=== PATIENT | female | born 1995 | race African-American/Black ===

== ENCOUNTER 2021-09-21 06:38 | Emergency (ER) | payer OTHER, SELFPAY ==
[2021-09-21 07:02] VITALS: BP 104/80; PULSE 86; RESP 20; TEMP 36.6; O2SAT 100
[2021-09-21 07:13] LABS: Basophils Percent Auto 0.6 % (0.2-1.2); Eosinophils Absolute Auto 0.1 K/mm3 (0-0.3); Eosinophils Percent Auto 1.2 % (0-4.4); Hematocrit 41.1 % (37.0-47.0); Hemoglobin 13.4 g/dL (12.0-15.0); Immature Granulocyte Absolute 0.02 K/mm3 (0.00-0.031); Immature Granulocyte Percent A 0.3 % (0-0.5); Immature Platelet Fraction Pct 7.7 % (0.9-11.2); Lymphocytes Absolute Auto 2.89 K/mm3 (0.9-3.2); Lymphocytes Percent Auto 44.8 % (18.3-44.2); Mean Corpuscular HGB Conc 32.6 g/dl (32-36); Mean Corpuscular Hemoglobin 30.5 pg (26-34); Mean Corpuscular Volume 93.6 fl (80-100); Mean Platelet Volume 10.2 fl (7.4-10.4); Monocytes Absolute Auto 0.7 K/mm3 (0.1-0.6); Monocytes Percent Auto 10.9 % (2.6-8.5); Neutrophils Absolute Auto 2.7 K/mm3 (1.3-6.7); Neutrophils Percent Auto 42.2 % (45.5-73.1); Platelet Count Result 186 k/mm3 (150-375); Red Blood Count 4.39 M/mm3 (4.2-5.4); Red Cell Distribution Width 12.1 % (11.5-14.5); White Blood Count 6.5 K/mm3 (4.5-10.0)
[2021-09-21 07:26] LABS: Alanine Aminotransferase 17 U/L (6-35); Albumin Level 4.4 g/dL (3.5-5.1); Alkaline Phosphatase 38 U/L (38-126); Anion Gap 7 mmol/L (8-16); Aspartate Amino Transferase 31 U/L (14-36); Bilirubin,Total 0.5 mg/dL (0.2-1.3); Blood Urea Nitrogen 11 mg/dL (7-17); Calcium 8.4 mg/dL (8.4-10.2); Carbon Dioxide 22 mmol/L (22-30); Chloride 106 mmol/L (98-107); Estimated CRCL calculation 115 ml/min; Estimated Glomerular Filt Rate > 60; Glucose 187 mg/dL (65-110); Lipase 131 U/L (23-300); Potassium 3.4 mmol/L (3.4-5.0); Sodium 135 mmol/L (137-145)
--- NOTE | 2021-09-21 07:27 | ED.ABDPAIN ---
HPI - Abdominal Pain General Chief Complaint: Abdominal Pain Stated Complaint: N/V, abd pain Time Seen by Provider: 09/21/21 06:55 History of Present Illness HPI narrative: Patient is a 26-year-old female who presents ER with a GI illness. She has had nausea and vomiting as well as diarrhea over the last 4 hours. She has had 4 episodes of diarrhea. Multiple episodes of dry heaving. No known sick contacts. Has no medications at home to help alleviate her discomfort. Denies fevers or chills or sweats. No loss of consciousness. No blood in stool or emesis. Related Data Allergies Allergy/AdvReac Type Severity Reaction Status Date / Time No Known Allergies Allergy Verified 09/21/21 07:43 Review of Systems Review of Systems: All systems reviewed & are unremarkable except as noted in HPI and below Constitutional: Constitutional: Denies chills, Reports fatigue and Denies fever(s) ENT: Denies nasal congestion and Denies sore throat Respiratory: Respiratory: Denies cough and Denies dyspnea Gastrointestinal: Gastrointestinal: Reports abdominal pain, Reports diarrhea, Reports nausea and Reports vomiting PMFSH Past Medical History Medical History (Updated 09/21/21 @ 10:47 by Damien Machuca MD) Healthy female adult Surgical History Surgical History (Updated 09/21/21 @ 07:28 by Damien Machuca MD) No history of previous surgery Social History Social History (Updated 09/21/21 @ 07:28 by Damien Machuca MD) Smoking status: Never smoker Exam Narrative: GENERAL: Well-appearing, well-nourished, and in no acute distress. HEAD: Normocephalic, atraumatic. ENT: Mucous membranes moist. CHEST: Clear to auscultation. No respiratory distress. HEART: Regular rate and rhythm. Normal peripheral pulses. ABDOMEN: Soft, nontender, nondistended, normal active bowel sounds. EXTREMITIES: Normal range of motion. No edema. SKIN: Warm, dry, no rash. NEURO: Alert and oriented x3. PSYCH: Normal mood and affect. Course Course Emergency Course: Patient resting comfortably. Has received morphine and Bentyl for discomfort. She is received Zofran as well she is tolerated oral fluids. Discharge home. Vital Signs Vital signs: Vital Signs Temperature 97.8 F 09/21/21 07:02 Pulse Rate 86 09/21/21 07:02 Respiratory Rate 20 05/15/22 07:02 Blood Pressure 104/80 09/21/21 07:02 Pulse Oximetry 100 09/21/21 07:02 Temperature 97.8 F 09/21/21 07:02 Pulse Rate 65 09/21/21 09:57 Respiratory Rate 20 09/21/21 09:57 Blood Pressure 127/108 H 09/21/21 09:57 Pulse Oximetry 100 09/21/21 09:57 MDM - Abdominal Pain Lab Data Result diagrams: 09/21/21 07:00 09/21/21 07:00 Labs: Lab Results 09/21/21 09/21/21 Range/Units 07:00 07:00 WBC 6.5 (4.5-10.0) K/mm3 RBC 4.39 (4.2-5.4) M/mm3 Hgb 13.4 (12.0-15.0) g/dL Hct 41.1 (37.0-47.0) % MCV 93.6 (80-100) fl MCH 30.5 (26-34) pg MCHC 32.6 (32-36) g/dl RDW 12.1 (11.5-14.5) % Plt Count 186 (150-375) k/mm3 MPV 10.2 (7.4-10.4) fl Immature Gran % (Auto) 0.3 (0-0.5) % Neut % (Auto) 42.2 L (45.5-73.1) % Lymph % (Auto) 44.8 H (18.3-44.2) % [place] % (Auto) 10.9 H (2.6-8.5) % Eos % (Auto) 1.2 (0-4.4) % Baso % (Auto) 0.6 (0.2-1.2) % Lymph # (Auto) 2.89 (0.9-3.2) K/mm3 [place] # (Auto) 0.7 H (0.1-0.6) K/mm3 Eos # (Auto) 0.1 (0-0.3) K/mm3 Baso # (Auto) 0.0 (0.0-0.1) K/mm3 Abs Immat Gran (auto) 0.02 (0.00-0.031) K/mm3 Absolute Neuts (auto) 2.7 (1.3-6.7) K/mm3 Absolute Nucleated RBC 0.0 (0.0-0.012) K/mm3 Nucleated RBC % 0.0 (0.0-0.2) % % Immature Plt Fraction 7.7 (0.9-11.2) % Sodium 135 L (137-145) mmol/L Potassium 3.4 (3.4-5.0) mmol/L Chloride 106 (98-107) mmol/L Carbon Dioxide 22 (22-30) mmol/L Anion Gap 7 L (8-16) mmol/L BUN 11 (7-17) mg/dL Creatinine 0.70 (0.7-1.0) mg/dL Estim Creat Clear Calc 115 ml/min
[2021-09-21] MEDS: ONDANSETRON INJ 4 MG/2 ML VIAL IV PUSH (08:04)
[2021-09-21] MEDS: MORPHINE SULFATE (*CRX) 4 MG/ML INJ IV PUSH (08:04)
--- NOTE | 2021-09-21 08:42 | PC.NURSE ---
IV access dc multiple RN attempted to start new IV not successful at this time. Dr Machuca aware.
[2021-09-21] MEDS: BELLADONNA ALK/PHENOB ELIX 10 ML, MAG HYDROX/ALUMINUM HYD/SIMETH 30 ML, LIDOCAINE HCL 2... PO (09:15)
[2021-09-21] MEDS: SODIUM CHLORIDE 0.9% IV 1,000 ML 999 ML IV CONT (09:23)
--- NOTE | 2021-09-21 09:39 | PC.NURSE ---
Unable to obtain Iv Access, Dr Machuca aware states no IV needed at this time, advance to PO fluids
[2021-09-21] MEDS: DICYCLOMINE HCL INJ 20 MG/2 ML VIAL IM (09:46)
[2021-09-21 09:57] VITALS: BP 127/108; PULSE 65; RESP 20; O2SAT 100
--- NOTE | 2021-09-21 10:01 | PC.NURSE ---
Pt said not able to urinate at this time.
[2021-09-21 11:09] VITALS: BP 113/64; PULSE 56; RESP 20; O2SAT 100
== END 2021-09-21 11:11 | disposition home or self-care (01) ==
PROVIDERS: Emergency Medicine; Emergency Provider Emergency Medicine
DX: K52.9 Noninfective gastroenteritis and colitis, unspecified (principal)
CPT/HCPCS: 36415; 80053; 83690; 85025; 85055; 96372; 96374; 96375; 99284; A9270; J0500; J2270; J2405; J7030

== ENCOUNTER 2022-02-09 04:28 | Emergency (ER) | payer OTHER, SELFPAY ==
[2022-02-09 04:34] VITALS: BP 95/43; PULSE 82; RESP 18; O2SAT 99
--- NOTE | 2022-02-09 05:16 | ED.GENADULT ---
HPI - General Adult General Chief complaint: Abdominal Pain Stated complaint: N/V, ABD PAIN Time Seen by Provider: 02/09/22 04:41 History of Present Illness HPI narrative: this is a 27-year-old female presenting ED with chief complaint of nausea vomiting abdominal pain. Patient says the pain started at 3:00 a.m. while she was sleeping. It is a diffuse burning pain. 10 out 10 intensity. Constant. The patient had similar symptoms several weeks ago was treated in the ER although she does not know with what. There are no exacerbating or alleviating factors. Patient has had multiple episodes of nausea vomiting has not been able tolerate p.o.. Patient denies diarrhea. She denies fever chills chest pain difficulty breathing or urinary symptoms. Patient denies urinary symptoms. Patient says her last menstrual period was last week. Related Data Allergies Allergy/AdvReac Type Severity Reaction Status Date / Time No Known Allergies Allergy Verified 02/09/22 04:40 Review of Systems Review of Systems: CONSTITUTIONAL: Denies night sweats. EYES: No eye pain ENT: Denies rhinorrhea CARDIOVASCULAR: Denies palpitations RESPIRATORY: Denies hemoptysis GASTROINTESTINAL: Denies hematemesis GENITOURINARY: Denies hematuria. SKIN: Denies rash MUSCULOSKELETAL: Denies myalgia. NEUROLOGIC: Denies weakness. PSYCHIATRIC: Denies delusions PMFSH Past Medical History Medical History (Updated 02/10/22 @ 00:00 by Beatris Bell) Healthy female adult Surgical History Surgical History (Updated 09/21/21 @ 07:28 by Damien Machuca MD) No history of previous surgery Social History Social History (Updated 02/09/22 @ 05:20 by Sanjeev Stanton MD) Social History: positive for marijuana use. Smoking status: Never smoker Exam Narrative: APPEARANCE: Patient is dry heaving during our interview. Head atraumatic. EYES: PERRLA/EOMI, NOSE: Normal no drainage NECK: Supple, Trachea midline RESPIRATORY: CTAB, No increased work of breathing. CARDIOVASCULAR: S1S2 appreciated ABDOMINAL: Abdomen is soft, nondistended with mild epigastric tenderness. There is no guarding or rebound. Bowel sounds present. MUSCULOSKELETAl: No obvious deformities NEURO: Alert. Moving 4/4 extremities SKIN:: Warm, dry. Normal color PSYCHIATRIC: Normal affect Course Vital Signs Vital signs: Vital Signs Pulse Rate 82 02/09/22 04:34 Respiratory Rate 18 02/09/22 04:34 Blood Pressure 95/43 L 02/09/22 04:34 Pulse Oximetry 99 02/09/22 04:34 Oxygen Delivery Room Air 02/09/22 04:34 Temperature 97.8 F 02/09/22 06:15 Pulse Rate 60 02/09/22 07:19 Respiratory Rate 16 02/09/22 07:19 Blood Pressure 97/80 L 02/09/22 07:19 Pulse Oximetry 100 02/09/22 07:19 Oxygen Delivery Room Air 02/09/22 04:34 Medical Decision Making MDM Narrative Medical decision making narrative: Is a 27-year-old female presenting ED with nausea and vomiting. Differential includes gastritis, has cannabinoid hyperemesis syndrome, pancreatitis or gallbladder disease. Patient will be treated symptomatically with Pepcid, Zofran, Haldol and 2 L of fluid. CMP, CBC and lipase have been ordered. Urine has been ordered. patient's lab work is within Normal limits. Upon re-evaluation the patient was still having some nausea. She will be treated with Compazine and Benadryl. Upon re-evaluation the patient is feeling much better. She is ready to go home. Her vital signs are stable, her abdominal exam is still benign. Patient will be discharged home with Zofran ODT. She has been instructed follow-up with her primary care physician. Vital Signs Vital Signs: Vital Signs Pulse Rate 82 02/09/22 04:34 Respiratory Rate 18 02/09/22 04:34 Blood Pressure 95/43 L 02/09/22 04:34 Pulse Oximetry 99 02/09/22 04:34 Oxygen Delivery Room Air 02/09/22 04:34 Temperature 97.8 F 02/09/22 06:15 Pulse Rate 60 02/09/22 0
[2022-02-09] MEDS: SODIUM CHLORIDE 0.9% IV 2,000 ML 999 ML IV CONT (05:24)
[2022-02-09] MEDS: ONDANSETRON INJ 4 MG/2 ML VIAL IV PUSH (05:26)
[2022-02-09] MEDS: HALOPERIDOL LACTATE 5 MG/ML VIAL IV PUSH (05:30)
[2022-02-09 05:37] LABS: Basophils Percent Auto 0.4 % (0.2-1.2); Eosinophils Absolute Auto 0.2 K/mm3 (0-0.3); Hematocrit 39.8 % (37.0-47.0); Hemoglobin 13.2 g/dL (12.0-15.0); Immature Granulocyte Absolute 0.02 K/mm3 (0.00-0.031); Immature Granulocyte Percent A 0.3 % (0-0.5); Lymphocytes Absolute Auto 3.29 K/mm3 (0.9-3.2); Lymphocytes Percent Auto 43.4 % (18.3-44.2); Mean Corpuscular HGB Conc 33.2 g/dl (32-36); Mean Corpuscular Hemoglobin 30.8 pg (26-34); Mean Corpuscular Volume 92.8 fl (80-100); Mean Platelet Volume 9.6 fl (7.4-10.4); Monocytes Absolute Auto 0.9 K/mm3 (0.1-0.6); Monocytes Percent Auto 11.3 % (2.6-8.5); Neutrophils Absolute Auto 3.2 K/mm3 (1.3-6.7); Neutrophils Percent Auto 41.6 % (45.5-73.1); Platelet Count Result 280 k/mm3 (150-375); Red Blood Count 4.29 M/mm3 (4.2-5.4); White Blood Count 7.6 K/mm3 (4.5-10.0)
[2022-02-09 05:43] LABS: Glucose Point of Care 186 mg/dl (65-105)
[2022-02-09 05:45] VITALS: BP 113/84; PULSE 47; RESP 17; O2SAT 100
[2022-02-09] MEDS: FAMOTIDINE 20 MG/2 ML VIAL IV PUSH (05:53)
[2022-02-09 05:56] LABS: Alanine Aminotransferase 17 U/L (6-35); Albumin Level 4.6 g/dL (3.5-5.1); Alkaline Phosphatase 45 U/L (38-126); Anion Gap 10 mmol/L (8-16); Aspartate Amino Transferase 29 U/L (14-36); Bilirubin,Total 0.5 mg/dL (0.2-1.3); Blood Urea Nitrogen 11 mg/dL (7-17); Calcium 9.3 mg/dL (8.4-10.2); Carbon Dioxide 26 mmol/L (22-30); Chloride 104 mmol/L (98-107); Estimated Glomerular Filt Rate > 60; Glucose 178 mg/dL (65-110); Lipase 127 U/L (23-300); Magnesium 1.7 mg/dL (1.6-2.3); Potassium 3.6 mmol/L (3.4-5.0); Sodium 140 mmol/L (137-145)
[2022-02-09 06:00] VITALS: BP 129/92; PULSE 54; RESP 19; O2SAT 100
[2022-02-09 06:15] VITALS: BP 108/64; PULSE 56; RESP 16; TEMP 36.6; O2SAT 100
[2022-02-09] MEDS: diphenhydrAMINE HCl INJ 50 MG/ML VIAL 25 MG IV PUSH (06:17)
[2022-02-09] MEDS: PROCHLORPERAZINE EDISYLATE 10 MG/2 ML VIAL IV PUSH (06:17)
[2022-02-09 06:30] VITALS: BP 117/75; PULSE 62; RESP 18; O2SAT 100
--- NOTE | 2022-02-09 07:08 | PC.NURSE ---
Report given to PILY Snow
[2022-02-09 07:19] VITALS: BP 97/80; PULSE 60; RESP 16; O2SAT 100
[2022-02-09 07:37] LABS: Beta HCG Quantitative < 2.39 mIU/ML
== END 2022-02-09 08:30 | disposition home or self-care (01) ==
PROVIDERS: Emergency Provider Emergency Medicine
DX: R11.2 Nausea with vomiting, unspecified (principal); F12.90 Cannabis use, unspecified, uncomplicated
CPT/HCPCS: 36415; 80053; 82948; 83690; 83735; 84702; 85025; 96361; 96374; 96375; 99284; J0780; J1200; J1630; J2405; J7030

== ENCOUNTER 2024-10-19 05:07 | Emergency (ER) | payer OTHER, SELFPAY ==
--- NOTE | ~2024-10-19 | CT_ITS ---
CT of the Abdomen and Pelvis: Indication: Epigastric pain Technique: 2.5 mm axial scans were obtained through the abdomen and pelvis following intravenous adm inistration of 100 cc of Omnipaque 350. Dose reduction technique was used on this scan by utilizing a utomated exposure control and iterative reconstruction technique. The dose-length product (DLP) was 2 24.51 mGy-cm. Findings: Scans through the lung bases are unremarkable. The liver, spleen, pancreas, gallbladder, adrenals and kidneys are within normal limits. No evidence of aortic aneurysm. No lymphadenopathy. No bowel obstruction or bowel wall thickening. There is no evidence to suggest acute appendicitis. Images through the pelvis were performed. Urinary bladder unremarkable. No pelvic mass seen. No ascit es. Impression: No significant abnormalities seen. Reviewed, dictated and finalized at [facility]. Impression: No significant abnormalities seen.
--- OUTSIDE RECORDS SUMMARY | 2024-10-19 05:10 | XMS_ITS | Encounter Summary ---
Author Organization [facility] Address [address] [place] [address] Phone Care Team Providers Care Electrocardiograph Repairer Name Role Phone Brandi Rashid MD Unavailable Deya Patel PAC Unavailable [phone] Zaira Boudreaux APRN, RECYCLING MANAGER Primary Care Provid er Encounter Details Date Type Department Care Team (Late st Contact Info) Description 08/22/2024 Results Follow-Up [facility] - Internal Medicine [facility] [address] [place] [address] Zaira Boudreaux APRN, RECYCLING MANAGER [address] [place] [address] VAGINITIS SCREEN, MOLECULAR, CHLAMYDIA & GC DNA PROBE > 12 Social History Tobacco Use Types Packs/Day Years Used Date Smoking Tobacco: Former Cigarettes 0.3 8 Q uit: 03/04/2019 Smokeless Tobacco: Never Alcohol Use Standard Drinks/Week Comments Not Currently 0 (1 standard drink = 0.6 oz pur e alcohol) occasional C Utilities Answer Date Recorded In the past 12 months has [employer], gas, oil, or water [employer] threatened to shut off services in your home? Patient declined 08/21/2024 Social Connection and Isolation Panel Answer Date Recorded In a typical week, how many times do you talk on the phone with family, friends, or neighbors? Patient declined 08/21/2024 How often do you get togethe r with friends or relatives? Patient declined 08/21/2024 How often do you attend temple or protestant serv ices? Patient declined 08/21/2024 Do you belong to any clubs o r organizations such as temple groups, unions, fraternal or athletic groups, or school groups? Patient declined 08/21/2024 How often do you attend meet ings of the clubs or organizations you belong to? Patient declined 08/21/2024 Are you , , di vorced, , never , or living with a partner? Patient declined 08/21/2024 AUDIT-C Answer Date Recorded Q1: How often do you have a drink containing alc ohol? Patient declined 08/21/2024 Q2: How many drinks containi ng alcohol do you have on a typical day when you are drinking? Patient declined 08/21/2024 Q3: How often do you have si x or more drinks on one occasion? Patient declined 08/21/2024 Overall Financial Resource Strain (CARDIA) Answe r Date Recorded How hard is it for you to pa y for the very basics like food, housing, medical care, and heating? Patient declined 08/21/2024 PHQ-2 Answer Date Recorded Total Score - Questions 1-9 0 09/07 [facility] - Occupational Stress Questionnaire Answer Date Recorded Do you feel stress - tense, restless, nervous, or anxious, or unable to sleep at night because your mind is troubled all the time - these days? Patient declined 08/21/2024 Exercise Vital Sign Answer Date Recorde d On average, how many days pe r week do you engage in moderate to strenuous exercise (like a brisk walk)? Patient declined On average, how many minutes do you engage in exercise at this level? Patient declined 08/21/2024 Hunger Vital Sign Answer Date Recorded Within the past 12 months, y ou worried that your food would run out before you got the money to buy more. Patient declined Within the past 12 months, t he food you bought just didn't last and you didn't have money to get more. Patient declined PRAPARE - Transportation Answer Date Re corded In the past 12 months, has l ack of transportation kept you from medical appointments or from getting medications? Patient declined 08/21/2024 In the past 12 months, has l ack of transportation kept you from meetings, work, or from getting things needed for daily living? Patient declined 08/21/2024 Housing Stability Vital Sign Answer Pablo e Recorded In the last 12 months, was t here a time when you were not able to pay the mortgage or rent on time? Patient declined 08/22/19 25 Number of Times Moved in the Last Year Not on fi le 08/21/2024 At any time in the past 12 m [facility], were you homeless or living in a senior care (including now)? Patient declined 08/21/2024 Education Answer Date Recorded What is the highest level of school you have completed or the highest degree you have received? GED or equivalent 04/2020 Sexually Active Control Partners Comments Yes Male Comments No Sex and Gender Information Value Date Recorded Sex Assigned at Female 05/22/2024 1:19 PM BULK PLANT SUPERVISOR Legal Sex Female 3:49 AM BULK PLANT SUPERVISOR Gender Identity Female 05/22/2024 1:19 PM BULK PLANT SUPERVISOR Sexual Orientation Straight 05/22/2024 1: 19 PM BULK PLANT SUPERVISOR documented as of this encounter Plan of Treatment Upcoming Encounters Date Type Department Care Team (Late st Contact Info) Description 11/03/2024 8:00 AM CDT Telemedicine [facility] - Internal Medicine [facility] [address] [place] [phone] Zaira Boudreaux, FAST BRIM POUNCER, RECYCLING MANAGER [address] [place] [phone] documented as of this encounter Visit Diagnoses Diagnosis Yeast infection- Primary Other and unspecified mycoses documented in this encounter Additional Health Concerns Assessment Noted Time PHQ-9 Depression Total Score: 0 05/16/19 19 6:00 AM BULK PLANT SUPERVISOR documented as of this encounter Care Teams Electrocardiograph Repairer Relationship Specialty Start Date End Date Zaira Boudreaux, FAST BRIM POUNCER, RECYCLING MANAGER PCP - General Advanced Practice Nurse 01/01/22 Brandi Rashid MD Consulting Physician Family Medicine 08/09/19 Deya Patel PAC Physician Video Machines Mechanic Physician Video Machines Mechanic 08/09/19 documented as of this encounter
--- OUTSIDE RECORDS SUMMARY | 2024-10-19 05:10 | XMS_ITS ---
Author Organization [facility] Address [address] [place] [address] Phone Care Team Providers Care Senior Java Developer Name Role Phone Brandi Rashid MD Unavailable [phone] Deya Patel Unavailable [phone] Zaira Boudreaux APRN, FORGE UTILITY WORKER Primary Care Provid er [facility] Status:Enrolled (Active) Start date:06/07/2024 Enrollment date:06/07/2024 Related social drivers of health:Social Connections, Alcohol Use, Tobacco Use, Financial Resource Strain, Stress, Physical Activity,Food Insecurity, Transportation Needs, Housing Stability, Utilities Continued Care and Services Coordination
--- OUTSIDE RECORDS SUMMARY | 2024-10-19 05:10 | XMS_ITS | Clinical Summary ---
Author Organization [facility] Address [address] [place] [address] Phone Care Team Providers Care White Sourer Name Role Phone Brandi Rashid MD Unavailable [phone] Deya Patel Unavailable [phone] Zaira Boudreaux CORPORATION OFFICER, DIRECTOR OF RESOURCE DEVELOPMENT Primary Care Provid er Allergies No known active allergies Medications CALCIUM POIndications:W ell adult exam Take 1 Tablet by mouth daily. Active sucralfate (CARAFATE) 1 GM TabletIndicatio ns:PUD (peptic ulcer disease) Take 1 Tablet by mouth every 6 hours. 120 Tablet 4 Active Cholecalciferol (Vitamin D-3 Super Strength) 50 mcg Tablet Take 1 Tablet by mouth daily. Active traMADol (ULTRAM) 50 MG TabletIndicatio ns:Dental infection Take 1 Tablet by mouth every 8 hours as needed for Moderate or more severe pain. 6 Tablet 4 Active Additional Information Patient not taking.Reported on 08/21/2024 pantoprazole (PROTONIX) 40 MG Tablet Delayed ResponseIndicat ions:PUD (peptic ulcer disease) Take 1 Tablet by mouth daily. 90 Tablet 4 Active metoclopramide (Reglan) 10 MG TabletIndicatio ns:Nausea and Vomiting Take 1 Tablet by mouth 4 times daily. Indications: Nausea and Vomiting 30 Tablet 5 Active lidocaine (XYLOCAINE) 5 % OintmentIndicat ions:Herpes simplex Apply as needed for Pain. Application Site: genital lesions TID PRN for pain 30 g 1 5 Active Acyclovir (ZOVIRAX) 5 % CreamIndication s:Herpes simplex Apply every 3 hours. Application Site: 5 g 5 5 Active acyclovir (ZOVIRAX) 800 MG Tablet Take 1 Tablet by mouth 2 times daily. 60 Tablet 5 Active metroNIDAZOLE (FLAGYL) 500 MG Tablet Take 1 Tablet by mouth 3 times daily. 30 Tablet 5 Active fluconazole (DIFLUCAN) 100 MG TabletIndicatio ns:Yeast infection Take 1 Tablet by mouth daily. 7 Tablet 5 Active dicyclomine (BENTYL) 20 MG Tablet Take 1 Tablet by mouth every 6 hours. 20 Tablet 5 Active ondansetron (ZOFRAN) 4 MG Tablet Take 1 Tablet by mouth every 8 hours as needed for Nausea - 1st line. 10 Tablet 5 Active Active Problems Problem Noted Date Diagnosed Date PUD (peptic ulcer disease) 12/21/2023 DUB (dysfunctional uterine bleeding) 01/31/2019 Chronic pain of both shoulders 01/31/2019 Hyperthyroidism 07/03/2016 Vitamin D deficiency 07/03/2016 Helicobacter positive gastritis 03/19/2016 Herpes simplex vulvovaginitis 03/17/2016 Encounters Date Type Department Care Team Description 09/24/2024 11:20 AM CDT - 09/24/2024 3:59 PM CDT [facility] [address] [place] [address] Hua Richard DO Periumbilical abdominal pain Discharge Disposition: Discharged to home or Selfcare 09/24/2024 Travel 08/22/2024 Telephone [facility] [address] [place] [address] Zaira Boudreaux, CORPORATION OFFICER, DIRECTOR OF RESOURCE DEVELOPMENT Prior Authorization (Acyclovir 5% cream denied needs changed ) 08/22/2024 [facility] [place] [address] [place] [phone] Zaira Boudreaux, VANCE, MAEVE VAGINITIS SCREEN, MOLECULAR, CHLAMYDIA & GC DNA PROBE > 12 08/21/2024 1:20 PM CDT Office Visit [facility] [place] [address] [place] [phone] Zaira Boudreaux, VANCE, DIRECTOR OF RESOURCE DEVELOPMENT Acute vaginitis (Primary Dx); Herpes simplex; Hyperthyroidism; Vaginal discharge Discharge Disposition: Discharged to home or Selfcare 08/21/2024 Travel 08/15/2024 MyChart RX Renewal [facility] [place] [address] [place] [phone] Zaira Boudreaux, VANCE, DIRECTOR OF RESOURCE DEVELOPMENT Medication Renewal Reviewed 08/15/2024 Telephone [facility] [place] [address] [place] [phone] Zaira Boudreaux, VANCE, DIRECTOR OF RESOURCE DEVELOPMENT 08/11/2024 Telephone [facility] [place] [address] [place] [phone] Zaira Boudreaux, VANCE, DIRECTOR OF RESOURCE DEVELOPMENT Medication Management from Last 3 Months Immunizations Immunization Administration Dates Next Due DTP Vaccine 02/12/1997, 5,1993,1993,1993 DTP-Hib 02/25/1996 Hepatitis A Vaccine 11/18/2018,03/10/2013 Hepatitis B Vaccine 03/10/2013 Hepatitis B Vaccine, Pediatric/adolescent 1993,1993,1993,1992,1993 Hib Vaccine,unspecified Formulation 05/10,1993,1993,1992 Influenza Vaccine greater than 3 yrs 03/02/2016 MMR Vaccine 02/25/1996,02/19/1994 OPV 02/12/1997, 5,1993,1992 PUR PCV-13 03/02/2016 TB Skin Test 09/22/2021 Family History Medical History Relation Name Comments No Known Problems Brother 2 Heart Attack Father No Known Problems Mother No Known Problems Sister 2 Relation Name Status Comments Brother 1 Alive Brother 2 Father Alive Mother Alive Sister 1 Alive Sister 2 Social History Tobacco Use Types Packs/Day Years Used Date Smoking Tobacco: Former Cigarettes 0.3 8 Q uit: 03/04/2019 Smokeless Tobacco: Never Tobacco Cessation:Counseling Given: Yes Alcohol Use Standard Drinks/Week Comments Not Currently 0 (1 standard drink = 0.6 oz pur e alcohol) occasional [facility] Utilities Answer Date Recorded In the past 12 months has e electric, gas, oil, or water company threatened to shut off services in your home? Patient declined 08/21/2024 Social Connection and Isolation Panel Answer Date Recorded In a typical week, how many times do you talk on the phone with family, friends, or neighbors? Patient declined 08/21/2024 How often do you get togethe r with friends or relatives? Patient declined 08/21/2024 How often do you attend mormonism or taoism serv ices? Patient declined 08/21/2024 Do you belong to any clubs o r organizations such as mormonism groups, unions, fraternal or athletic groups, or [...] Total Score - Questions 1-9 0 09/07 Portuguese Phil Campbell of Occupat ional Health - Occupational Stress [...] any time in the past 12 m [facility], were you homeless or living in a correction (including now)? Patient declined 08/21/2024 Education Answer Date Recorded What is the highest level of school you have completed or the highest degree you have received? GED or equivalent 04/2020 Sexually Active Control Partners Comments Yes Male Comments No Sex and Gender Information Value Date Recorded Sex Assigned at Female 05/22/2024 1:19 PM COMBINATION TECHNICIAN Legal Sex Female 3:49 AM COMBINATION TECHNICIAN Gender Identity Female 05/22/2024 1:19 PM COMBINATION TECHNICIAN Sexual Orientation Straight 05/22/2024 1: 19 PM COMBINATION TECHNICIAN Last Filed Vital Signs Vital Sign Reading Time Taken Comments Blood Pressure 117/68 09/24/2024 3:09 PM CDT Pulse 81 09/24/2024 3:09 PM CDT Temperature 36.7 C (98.1 F) 09/24/2024 3:09 PM CDT Respiratory Rate 18 09/24/2024 3:09 PM CDT Oxygen Saturation 100% 09/24/2024 3:09 PM CDT Inhaled Oxygen Concentration - - Weight 69.9 kg (154 lb) 09/24/2024 11:09 AM CDT Height 180.3 cm (5' 11) 09/24/2024 11:09 AM CDT Body Mass Index 21.48 09/24/2024 11:09 AM CDT Plan of Treatment Upcoming Encounters Date Type Department Care Team (Late st Contact Info) Description 11/03/2024 8:00 AM CDT Telemedicine [facility] [place] [address] [place] [address] Zaira Boudreaux M, CORPORATION OFFICER, DIRECTOR OF RESOURCE DEVELOPMENT [address] [place] [address] Health Maintenance Due Date Last Done Comments DTaP/Tdap/Td Immunization (6 - Tdap) 02/08/2004 02/12/1997, 02/25/1996, 05/21/1994, Additional history exists Human Papillomavirus (HPV) Immunization (1 - 3-dose series) 02/08/2008 Pneumococcal Immunization Combined (2 of 2 - PPSV23) 04/27/2016 03/02/2016 HPV/Cotest 2023 SARS-COV-2 Immunization ( season) 2024 Influenza Immunization (Season Ended) 2025 03/02/2016 Cervical Cancer Screening (CCS) 01/06/2027 Pap Smear 01/06/2027 01/07/2024, 01/08, 11/22/2014 Respiratory Syncytial Virus (RSV) Immunization (Adult) (1 - 1-dose 75+ series) 02/08/2068 Hepatitis B Immunization Completed 013, 1993, 1993, Additional history exists Hepatitis C Virus (HCV) Screening Completed 12/29/2023, 06/09/2023 Meningococcal Immunization (ACWY) Aged Out No longer eligible based on patient's age to complete this topic Rotavirus Immunization Aged Out No lo nger eligible based on patient's age to complete this topic Procedures Procedure Name Priority Date/Time Associated Diagnosis Comments UR TEST QUAL STAT 2:42 PM CDT URINALYSIS REFLEX IF INDICATED BY ABNORMAL RESULTS STAT 09/24/2024 2:42 PM CDT CBC WITH AUTO DIFFERENTIAL STAT 09/24/2024 11:15 AM CDT LIPASE STAT 09/24/2024 11:15 AM CDT CMP (COMPREHENSIVE METABOLIC PANEL) STAT 09/24/2024 11:15 AM CDT COMPLETE BLOOD COUNT (CBC) WITH DIFF STAT 09/24/2024 11:15 AM CDT CHLAMYDIA & GC DNA PROBE Routine 08/21/2024 1:49 PM CDT Vaginal discharge CHLAMYDIA & GC DNA PROBE > 12 Routine 08/21/2024 1:49 PM CDT Vaginal discharge VAGINITIS SCREEN, MOLECULAR Routine 08/21/2024 1:49 PM CDT Acute vaginitis LAB - MISCELLANEOUS 07/26/2024 1 2:00 AM CDT PATHOLOGY CYTOLOGY ON AIR HOST Routine 11:34 AM CDT Cervical cancer screening HEPATITIS C ANTIBODY Routine 12/29/2023 12:43 PM CDT Urinary pain Possible exposure to STI from Last 3 Months or Most Recently Relevant to Health Maintenance Results * (ABNORMAL) Urinalysis w/ Reflex (09/24/2024 2:42 PM CDT) SPECIFIC GRAVITY >=1.030 1.003 - 1.030 09/24/2024 2:57 PM CDT [facility] URINE PH 6.0 5.0 - 9.0 09/24/2024 2:57 PM CDT [facility] WBC ESTERASE Negative Negative 09/24/2024 2:57 PM CDT [facility] NITRITE Negative Negative 09/24/2024 2:57 PM CDT [facility] PROTEIN, RANDOM URINE 1+(A) Negative 09/24/2024 2:57 PM CDT [facility] URINE GLUCOSE, QUAL 2+(A) Negative 09/24/2024 2:57 PM CDT [facility] URINE KETONES 2+(A) Negative 09/24/2024 2:57 PM CDT [facility] UROBILINOGEN 0.2 0.2 , 1.0 , Normal mg/dL 09/24/2024 2:57 PM CDT [facility] URINE BLOOD 3+(A) Negative kyleigh/ul 09/24/2024 2:57 PM CDT [facility] URINALYSIS COLOR Yellow 09/24/2024 2:57 PM CDT [facility] URINALYSIS CLARITY Slightly Cloudy 09/24/2024 2:57 PM CDT [facility] WBC (Urine) 0-5 Negative, 0-5 /hpf 09/24/2024 2:57 PM CDT [facility] URINE RBC'S Packed(A) Negative, 0-2 /hpf 09/24/2024 2:57 PM CDT [facility] EPITHELIAL CELLS Occasional /lpf 09/24/2024 2:57 PM CDT [facility] BACTERIA, URINE Negative Negative /hpf 09/24/2024 2:57 PM CDT [facility] URINE MUCOUS Many 09/24/2024 2:57 PM CDT [facility] Urine URINE SPECIMEN / Unknown Non-Phlebotomy Collection / Unknown 09/24/2024 2:42 PM CDT 09/24/2024 2:42 PM CDT us Hua Amir DO URINE ORDERABLES Final Result [facility] [address] [place] [address], [place] [phone] * Ur Test Qual (09/24/2024 2:42 PM CDT) PREG TEST,MONOCLONA L Negative 09/24/2024 2:58 PM CDT [facility] Urine Non-Phlebotomy Collection / Unknown 09/24/2024 2:42 PM CDT 09/24/2024 2:42 PM CDT us Hua Richard DO URINE ORDERABLES Final Result Performing Organization Address [facility] Co de Phone Number [address] [address], [place] [phone] * (ABNORMAL) CBC with Auto Differential (09/24/2024 11:15 AM CDT) Pathologist [facility] WBC 10.55 4.00 - 12.00 10(3)/mcL 09/24/2024 11:22 AM CDT [facility] RBC 4.35 3.80 - 5.30 10(6)/mcL 09/24/2024 11:22 AM CDT [facility] HEMOGLOBIN (HGB) 13.4 12.0 - 15.8 g/dL 09/24/2024 11:22 AM CDT [facility] HEMATOCRIT (HCT) 40.1 36.0 - 47.0 % 09/24/2024 11:22 AM CDT [facility] MCV 92.2 82.0 - 96.0 fL 09/24/2024 11:22 AM CDT [facility] MCH 30.8 26.0 - 34.0 pg 09/24/2024 11:22 AM CDT [facility] MCHC 33.4 31.0 - 36.0 g/dL 09/24/2024 11:22 AM CDT [facility] PLATELET COUNT 231 140 - 440 10(3)/mcL 09/24/2024 11:22 AM CDT [facility] RDW 12.1 11.8 - 15.5 % 09/24/2024 11:22 AM T [facility] MPV 9.0(L) 9.7 - 12.4 fL 09/24/2024 11:22 AM [facility] NEUTROPHILS 89.0(H) 47.0 - 73.0 % 09/24/2024 11:22 AM T [facility] LYMPHOCYTES 6.6(L) 18.0 - 42.0 % 09/24/2024 11:22 AM T [facility] MONOCYTES 4.2 4.0 - 12.0 % 09/24/2024 11:22 AM [facility] EOSINOPHILS 0.0 0.0 - 5.0 % 09/24/2024 11:22 AM [facility] BASOPHILS 0.2 0.0 - 1.0 % 09/24/2024 11:22 AM [facility] ABSOLUTE NEUTROPHILS 9.39(H) 1.60 - 7.70 10(3)/[facility] 09/24/2024 11:22 AM [facility] ABSOLUTE LYMPHOCYTES 0.70(L) 1.30 - 3.20 10(3)/[facility] 09/24/2024 11:22 AM [facility] ABSOLUTE MONOCYTES 0.44 0.20 - 1.00 10(3)/[facility] 09/24/2024 11:22 AM [facility] ABSOLUTE EOSINOPHIL 0.00 0.00 - 0.40 10(3)/[facility] 09/24/2024 11:22 AM [facility] ABSOLUTE BASOPHILS 0.02 0.00 - 0.10 10(3)/[facility] 09/24/2024 11:22 AM [facility] NRBC PER 100 WBC 0 09/25/19 11:22 AM [facility] Blood Venous Catheter (IV) / Unknown 09/24/2024 11:15 AM CDT 09/24/2024 11:19 AM CDT Marisabelammanate Amir DO HEMATOLOGY ORDERABLES Final Res ult Performing Organization Address City/[facility]/ZIP Co de Phone Number [address] [address], [place] [phone] * Lipase (09/24/2024 11:15 AM CDT) LIPASE 28 8 - 78 U/L 09/24/2024 11:43 AM CDT [facility] Blood Venous Catheter (IV) / Unknown 09/24/2024 11:15 AM CDT 09/24/2024 11:19 AM CDT Hua Richard DO CHEMISTRY ORDERABLES Final Resu lt Performing Organization Address [facility] Co de Phone Number [address] [address], [place] [phone] * (ABNORMAL) CMP (09/24/2024 11:15 AM CDT) SODIUM 138 136 - 145 mmol/L 09/24/2024 11:43 AM CDT [facility] POTASSIUM 3.6 3.5 - 5.1 mmol/L 09/24/2024 11:43 AM CDT [facility] CHLORIDE 105 98 - 107 mmol/L 09/24/2024 11:43 AM CDT [facility] CO2, VENOUS 20(L) 22 - 30 mmol/L 09/24/2024 11:43 AM CDT [facility] ANION GAP 13.0 <18.0 mmol/L 09/24/2024 11:43 AM CDT [facility] GLUCOSE 212(H) 70 - 99 mg/dL 09/24/2024 11:43 AM CDT [facility] BUN 9 5 - 18 mg/dL 09/24/2024 11:43 AM CDT [facility] CREATININE, BLOOD 0.97 0.60 - 1.00 mg/dL 09/24/2024 11:43 AM [facility] BUN/CREATININE RATIO 9(L) 12 - 20 ratio 09/24/2024 11:43 AM [facility] TOTAL PROTEIN 7.7 6.0 - 8.0 g/dL 09/24/2024 11:43 AM [facility] ALBUMIN 4.5 3.5 - 5.0 g/dL 09/24/2024 11:43 AM [facility] A/G RATIO 1.4 1.0 - 2.2 09/24/2024 11:43 AM [facility] CALCIUM 9.4 8.7 - 10.5 mg/dL 09/24/2024 11:43 AM [facility] T BILI 0.7 0.2 - 1.2 mg/dL 09/24/2024 11:43 AM [facility] SGOT (AST) 28 <43 U/L 09/24/2024 11:43 AM [facility] SGPT (ALT) 17 <56 U/L 09/24/2024 11:43 AM [facility] ALKALINE PHOSPHATASE 39(L) 40 - 150 U/L 09/24/2024 11:43 AM [facility] GFR, ESTIMATED >60 >=60 09/24/2024 11:43 AM [facility] Comment: Creatinine Clearance is the preferred criteria for selecting drug dose adjustments in renally impaired patients. The GFR is provided as additional pertinent clinical information. GFR is reported in mL/min/1.73 sq m. Calculation based on the Chronic Kidney Disease Epidemiology Collaboration (CKD- EPI) equation refit without adjustment for race. GFR, EST. >60 >=60 025 11:43 AM [facility] GFR, EST. NONAFRICAN >60 >=60 09/24/2024 11:43 AM [facility] Blood Venous Catheter (IV) / Unknown 09/24/2024 11:15 AM CDT 09/24/2024 11:19 AM CDT us Hua Richard DO CHEMISTRY ORDERABLES Final Resu lt [facility] [address] [place] [address], * CHLAMYDIA & GC DNA PROBE > 12 (08/21/2024 1:49 PM CDT) CHLAMYDIA DNA NEGATIVE NEGATIVE 08/22/2024 9:18 AM CDT [facility] Comment: Presumed negative for C. trachomatis. A negative result does not preclude C. trachomatis infection because results are dependent on adequate specimen collection, absence of inhibitors, and sufficient DNA to be detected. This test was performed using [employer]ICE 5800 Real Time PCR. GC DNA NEGATIVE NEGATIVE 08/22/2024 9:18 AM CDT [facility] Comment: Presumed negative for N. gonorrhoeae. A negative result does not preclude N. gonorrhoeae infection because results are dependent on adequate specimen collection, absence of inhibitors, and sufficient DNA to be detected. This test was performed using [employer]ICE 5800 Real Time PCR. Other (Self-collect vaginal swab) Non-Phlebotomy Collection / Unknown 08/21/2024 1:49 PM CDT 08/21/2024 1:49 PM CDT Zaira Boudreaux APRN, DIRECTOR OF RESOURCE DEVELOPMENT MICROBIOLOGY - GENER AL ORDERABLES Final Result Performing Organization Address City/[facility]/ZIP Co de Phone Number [facility] [address] [place] [address], * (ABNORMAL) VAGINITIS SCREEN, MOLECULAR (08/21/2024 1:49 PM CDT) TRICHOMONAS NOT DETECTED NOT DETECTED 08/22/2024 1:19 AM CDT [facility] BACTERIAL VAGINOSIS DETECTED(A) NOT DETECTED 08/22/2024 1:19 AM CDT [facility] SCARLETT DETECTED(A) NOT DETECTED 08/22/2024 1:19 AM CDT [facility] Comment: Scarlett group DNA Detected with the following possible Scarlett species; Scarlett albicans and/or Scarlett tropicalis and/or Scarlett parapsilosis and/or Scarlett dubliniensis SCARLETT GLABRATA NOT DETECTED NOT DETECTED 08/22/2024 1:19 AM CDT [facility] SCARLETT KRUSEI NOT DETECTED NOT DETECTED 08/22/2024 1:19 AM CDT [facility] Other VAGINAL STRUCTURE / Unknown Non-Phlebotomy Collection / Unknown 08/21/2024 1:49 PM CDT 08/21/2024 1:49 PM CDT us Zaira Boudreaux APRN, DIRECTOR OF RESOURCE DEVELOPMENT MICROBIOLOGY - GENER AL ORDERABLES Final Result Performing Organization Address City/[facility]/ZIP Co de Phone Number [facility] [address] [place] [address], * LAB - MISCELLANEOUS (07/26/2024 12:00 AM CDT) 07/26/2024 Provider Scan CHEMISTRY ORDERABLES Final Resul t SCAN * PATHOLOGY CYTOLOGY ON AIR HOST (01/07/2024 11:34 AM CDT) SPECIMEN ADEQUACY Satisfactory for evaluation. Endocervical/transf ormation zone component is present. 01/17/2024 4:36 PM CDT [facility] DESCRIPTIVE DIAGNOSIS NEGATIVE FOR INTRAEPITHELIAL LESIONS OR MALIGNANCY. 01/17/2024 4:36 PM CDT [facility] at 1635 CDT Automated Examination Analysis of this sample has been assisted by an automated imaging and review system ([employer] System, [employer], [place], [place]). This case is further evaluated and finalized by a ed educational aide and/or pathologist. 01/17/2024 4:36 PM CDT [facility] Disclaimer The PAP smear is a screening test designed to detect cancerous or precancerous cells of the uterine cervix. It is one of the best means available for detection of cervical cancer but still carries an inherent false-negative rate. The consequences of a false-negative PAP result can be minimized by adhering to current screening guidelines. The following are general guidelines recommended by the ACS, ASCP, ASCCP, and ACOG: PAP testing is recommended every three years for women 21-29, Co-Testing, a PAP test in conjunction with an HPV (Human Papillomavirus) test for women ages 30-65, and no PAP or HPV testing for women under the age of 21 or older than 65 unless clinically indicated. 01/17/2024 4:36 PM CDT [facility] Case Report Gynecologic Cytology Report Case: [id number] Authorizing Provider: Zaira Boudreaux APRN, Collected: 01/07/2024 11:34 AM MAEVE Ordering Location: [facility] Received: 01/07/2024 11:34 AM [facility] Primary [facility] First Screen: Emilia Madrid Specimen: TP Screen, Cervix 01/17/2024 4:36 PM CDT [facility] Other CERVIX UTERI STRUCTURE / Unknown Non-Phlebotomy Collection / Unknown 01/07/2024 11:34 AM CDT 01/07/2024 11:34 AM CDT us Zaira Boudreaux APRN, MAEVE PATHOLOGY/CYTOLOGY O RDERABLES Final Result [facility] [address] [place] [address], * HEPATITIS C ANTIBODY (12/29/2023 12:43 PM CDT) hepatitis C antibody 0.11 <1 S/CO 12/29/2023 10:08 PM CDT [facility] Comment: Signal/Cutoff ratio < 0.79 is Nondetected Signal/Cutoff ratio 0.80-0.99 is Grayzone Signal/Cutoff ratio > 0.99 is Detected Supplemental assays are recommended if signal/cutoff ratio is >/=1.00. Signal/cutoff ratio result >/= 5.00 is 97% predictive of positivity for recombinant immunoblot assay (RIBA) and will be reported to the [place] Department of Public Health as required. Blood Venipuncture / Unknown 12/29/2023 12:43 PM CDT 12/29/2023 12:43 PM CDT us Kiki Mcnally APRN, MAEVE CHEMISTRY ORDERA BLES Final Result [facility] [address] [place] [address], [place] from Last 3 Months or Most Recently Relevant to Health Maintenance Insurance MEDICAID [employer] [facility] Advance Directives * Full Code (Latest Code Status on File) Date Activated Date Inactivated Comments 11/22/2014 9:01 AM 05/02/2022 1:29 AM Care Teams White Sourer Relationship Specialty Start Date End Date Zaira Boudreaux APRN, DIRECTOR OF RESOURCE DEVELOPMENT PCP - General Advanced Practice Nurse 01/01/22 Brandi Rashid MD Consulting Physician Family Medicine 08/09/19 Deya Patel PAC Physician Dockworker Physician Dockworker 08/09/19
--- OUTSIDE RECORDS SUMMARY | 2024-10-19 05:10 | XMS_ITS | Clinical Summary ---
Author Organization [facility] Address [address] [place] [address] Care Team Providers Care Quality Assurance Practice Manager Name Role Phone Pcp, None Primary Care Provider Unavailabl e Allergies No known active allergies Medications No known medications Active Problems Problem Noted Date Diagnosed Date Hyperthyroidism 11/23/2019 Social History Tobacco Use Types Packs/Day Years Used Date Smoking Tobacco: Never Smokeless Tobacco: Never Alcohol Use Standard Drinks/Week Comments Yes 0 (1 standard drink = 0.6 oz pur e alcohol) Comments No Sex and Gender Information Value Date Recorded Sex Assigned at Not on file Legal Sex Female 9:08 AM CDT Gender Identity Not on file Sexual Orientation Not on file Last Filed Vital Signs Vital Sign Reading Time Taken Comments Blood Pressure 114/61 05/01/2020 2:15 PM DELIVERY TECH Pulse 80 05/01/2020 2:15 PM DELIVERY TECH Temperature 37 C (98.6 F) 05/01/2020 10:28 AM DELIVERY TECH Respiratory Rate 18 05/01/2020 2:15 PM DELIVERY TECH Oxygen Saturation 96% 05/01/2020 2:15 PM DELIVERY TECH Inhaled Oxygen Concentration - - Weight 77.1 kg (170 lb) 05/01/2020 10:28 AM DELIVERY TECH Height 180.3 cm (5' 11) 05/01/2020 10:28 AM DELIVERY TECH Body Mass Index 23.71 05/01/2020 10:28 AM DELIVERY TECH Plan of Treatment Health Maintenance Due Date Last Done Comments Annual Physical 1993 Insurance [facility] PLANS [facility] MEDICINE [facility] Care Teams Quality Assurance Practice Manager Relationship Specialty Start Date End Date Pcp, DUKE Borrero [phone] PCP - General 05/01/20
--- OUTSIDE RECORDS SUMMARY | 2024-10-19 05:10 | XMS_ITS | Referral Summary ---
Author Organization [facility] Address [address] [place] [address] Care Team Providers Care Medical Lab Director Name Role Phone Pcp, None Primary Care [...] Comments Blood Pressure 114/61 05/01/2020 2:15 PM CLINICAL RESEARCH MANAGEMENT ASSOCIATE Pulse 80 05/01/2020 2:15 PM CLINICAL RESEARCH MANAGEMENT ASSOCIATE Temperature 37 C (98.6 F) 05/01/2020 10:28 AM CLINICAL RESEARCH MANAGEMENT ASSOCIATE Respiratory Rate 18 05/01/2020 2:15 PM CLINICAL RESEARCH MANAGEMENT ASSOCIATE Oxygen Saturation 96% 05/01/2020 2:15 PM CLINICAL RESEARCH MANAGEMENT ASSOCIATE Inhaled Oxygen Concentration - - Weight 77.1 kg (170 lb) 05/01/2020 10:28 AM CLINICAL RESEARCH MANAGEMENT ASSOCIATE Height 180.3 cm (5' 11) 05/01/2020 10:28 AM CLINICAL RESEARCH MANAGEMENT ASSOCIATE Body Mass Index 23.71 05/01/2020 10:28 AM CLINICAL RESEARCH MANAGEMENT ASSOCIATE Plan of Treatment Not on file Insurance [facility] [place] [address] [place] [address] [facility] Care Teams Medical Lab Director Relationship Specialty Start Date End Date Pcp, DUKE Borrero [id number] PCP - General 05/01/20
--- OUTSIDE RECORDS SUMMARY | 2024-10-19 05:10 | XMS_ITS | Encounter Summary ---
Author Organization [facility] Address [address] [place] [address] Phone Care Team Providers Care Director Health Name Role Phone Brandi Rashid MD Unavailable Deya Patel PAC Unavailable [phone] Zaira Boudreaux APRN, MACHINE COIL ASSEMBLER Primary Care [facility] er Reason for Visit * Reason Comments Medication Refill Encounter Details Date Type Department Care Team (Late st Contact Info) Description 05/04/2024 Refill [facility] - Primary Care [facility] [address] [place] [address] Zaira Boudreaux APRN, MACHINE COIL ASSEMBLER [address] [place] [address] Medication Refill Social History Tobacco Use Types Packs/Day Years Used Date Smoking Tobacco: Former Cigarettes 0.3 8 Q uit: 03/04/2019 Smokeless Tobacco: Never Alcohol Use Standard Drinks/Week Comments Not Currently 0 (1 standard drink = 0.6 oz pur e alcohol) occasional PHQ-2 Answer Date Recorded Total Score - Questions 1-9 0 09/07 Education Answer Date Recorded What is the highest level of school you have completed or the highest degree you have received? GED or equivalent 04/2020 Sexually Active Control Partners Comments Yes Male Comments Unknown Sex and Gender Information Value Date Recorded Sex Assigned at Female 05/22/2024 1:19 PM CNA INSTRUCTOR Legal Sex Female 3:49 AM CNA INSTRUCTOR Gender Identity Female 05/22/2024 1:19 PM CNA INSTRUCTOR Sexual Orientation Straight 05/22/2024 1: 19 PM CNA INSTRUCTOR documented as of this encounter Miscellaneous Notes * Telephone Encounter - Nikkie Lutz LPN - 05/04/2024 1:16 PM CNA INSTRUCTOR Medication failed the protocol, provider to review and approve the medication order if appropriate. Requested Prescriptions Pending Prescriptions Disp Refills pantoprazole (PROTONIX) 40 MG Tablet Delayed Response [Pharmacy Med Name: Pantoprazole Sodium 40 MGOral Tablet Delayed Release] 90 Tablet 0 Sig: Take 1 tablet by mouth once daily Proton Pump Inhibitors Protocol Passed - 05/04/2024 1:16 PM Passed - No positive test in the past 12 months or most recent test was negative Passed - Visit with relevant provider in past 12 months or upcoming 90 days Recent Visits Date Type Provider Dept 01/07/24 Office Visit Zaira Boudreaux APRN, MACHINE COIL ASSEMBLER [facility] 11/29/23 Office Visit Zaira Bourdeaux APRN, MAEVE [facility] 08/04/23 Office Visit Zaira Boudreaux APRN, MAEVE [facility] 06/09/23 Office Visit Zaira Boudreaux APRN, MACHINE COIL ASSEMBLER [facility] Showing recent visits within past 365 days and meeting all other requirements Future Appointments Date Type Provider Dept 05/05/24 Appointment Zaira Boudreaux APRN, MACHINE COIL ASSEMBLER [facility] Showing future appointments within next 90 days and meeting all other requirements Passed - No active on record INSTRUCTOR documented in this encounter Plan of Treatment Upcoming Encounters Date Type Department Care Team (Late st Contact Info) Description 11/03/2024 8:00 AM CDT Telemedicine [facility] - Internal Medicine [facility] [address] [place] [address] Zaira Boudreaux, VANCE, MACHINE COIL ASSEMBLER [address] [place] [address] documented as of this encounter Visit Diagnoses Diagnosis PUD (peptic ulcer disease) Peptic ulcer, unspecified site, unspecified as acute or chronic, without mention of hemorrhage, perforation, or obstruction documented in this encounter Additional Health Concerns Assessment Noted Time PHQ-9 Depression Total Score: 0 05/16/19 19 6:00 AM CNA INSTRUCTOR documented as of this encounter Care Teams Director Health Relationship Specialty Start Date End Date Zaira Boudreaux APRN, MACHINE COIL ASSEMBLER PCP - General Advanced Practice Nurse 01/01/22 Brandi Rahsid MD Consulting Physician Family Medicine 08/09/19 Deya Patel PAC Physician Analyst Business Analysis Physician Analyst Business Analysis 08/09/19 documented as of this encounter
[2024-10-19 05:37] VITALS: BP 96/64; PULSE 77; RESP 16; TEMP 37.2; O2SAT 100
--- NOTE | 2024-10-19 05:45 | ED_ITS ---
HPI - General Adult General Chief complaint: Abdominal Pain <Sanjeev Stanton MD - Last Filed: 10/19/24 06:47> Stated complaint: nausea, abd pain <Sanjeev Stanton MD - Last Filed: 10/19/24 06:47> Time Seen by Provider: 10/19/24 05:18 <Sanjeev Stanton MD - Last Filed: 10/19/24 06:47> History of Present Illness HPI narrative: This is a 29-year-old female presenting ED with chief complaint of epigastric pain, nausea vomiting. Patient states that she started having nausea vomiting several hours prior to arrival. She has had multiple episodes. Associated with a burning sensation in the epigastric area that radiates into her chest. She denies fevers chills shortness of breath or urinary symptoms. Last bowel movement was yesterday and was normal. Patient states she uses marijuana recreationally. Patient states that she has metoclopramide for her nausea and vomiting. When offered metoclopramide she says this point it is too far gone and she will need something stronger to help with the pain. <Sanjeev Stanton MD - Last Filed: 10/19/24 06:47> Related Data Allergies/adverse reactions: Allergies Allergy/AdvReac Type Severity Reaction Status Date / Time No Known Allergies Allergy Verified 10/19/24 05:08 <Sanjeev Stanton MD - Last Filed: 10/19/24 06:47> [facility] Past Medical History Medical History: Medical History (Updated 10/19/24 @ 08:46 by Colby Patel MD) Healthy female adult <Sanjeev Stanton MD - Last Filed: 10/19/24 06:47> Surgical History Surgical History: Surgical History (Updated 09/21/21 @ 07:28 by Damien Machuca MD) No history of previous surgery <Sanjeev Stanton MD - Last Filed: 10/19/24 06:47> Social History Social History: Social History (Updated 02/09/22 @ 05:20 by Sanjeev Stanton MD) Social History: positive for marijuana use. Smoking status: Never smoker <Sanjeev Stanton MD - Last Filed: 10/19/24 06:47> Exam 2 Narrative: APPEARANCE: No apparent distress. Patient is spitting into a vomit bag repeatedly. Head: atraumatic. EYES: EOMI, NOSE: Atraumatic NECK: Trachea midline RESPIRATORY: No increased rate of breathing CTAB CARDIOVASCULAR: RRR, no peripheral edema ABDOMINAL: Tenderness in the epigastric area without guarding rebound MUSCULOSKELETAl: No obvious deformities NEURO: Alert. Moving 4/4 extremities SKIN:: Warm, dry. Normal color PSYCHIATRIC: Normal affect <Sanjeev Stanton MD - Last Filed: 10/19/24 06:47> Course Course Emergency Course: 07:00 - This patient was signed out to me by previous ED physician, Dr. Stanton pending labs and imaging results. 08:48 - CBC unremarkable. Chemistries demonstrate mild hyponatremia sodium of 135, hyperglycemia glucose of 192 AST slightly elevated at 38. Lipase within normal limits. Urinalysis demonstrated 1+ ketones, consistent with recurrent vomiting. test negative. Urine drug screen positive for cannabinoids. CT pelvis negative for acute intra-abdominal process. On re- evaluation, the patient states her nausea is improved after IV Haldol. Will discharge with nausea medications, PPI and recommendation for primary care follow-up. I discussed the findings and recommendations with the patient. Discussed return and emergency precautions including signs/symptoms of acute abdomen and intractable vomiting. The patient voiced understanding and agreement with the plan. All questions answered to her satisfaction. <Colby Patel MD - Last Filed: 10/19/24 08:49> Vital Signs Vital signs: Vital Signs Temperature 98.9 F 10/19/24 05:37 Pulse Rate 77 10/19/24 05:37 Respiratory Rate 16 10/19/24 05:37 Blood Pressure 96/64 L 10/19/24 05:37 Pulse Oximetry 100 10/19/24 05:37 Oxygen Delivery Room Air 10/19/24 05:37 Temperature 98.9 F 10/19/24 05:37 Pulse Rate 64 10/19/24 08:30 Respiratory Rate 16 10/19/24 08:30 Blood Pressure 113/75 10/19/24 08:30 Pulse Oximetry 100 10/19/24 08:30 Oxygen Delivery Room Air 10/19/24 05:37 <Sanjeev Stanton MD - Last Filed: 10/19/24 06:47> Vital Signs Temperature 98.9 F 10/19/24 05:37 Pulse Rate 77 10/19/24 05:37 Respiratory Rate 16 10/19/24 05:37 Blood Pressure 96/64 L 10/19/24 05:37 Pulse Oximetry 100 10/19/24 05:37 Oxygen Delivery Room Air 10/19/24 05:37 Temperature 98.9 F 10/19/24 05:37 Pulse Rate 64 10/19/24 08:30 Respiratory Rate 16 10/19/24 08:30 Blood Pressure 113/75 10/19/24 08:30 Pulse Oximetry 100 10/19/24 08:30 Oxygen Delivery Room Air 10/19/24 05:37 <Colby Patel MD - Last Filed: 10/19/24 08:49> Medical Decision Making MDM Narrative Medical decision making narrative: -Course: 29-year-old female presenting with nausea vomiting for several hours. Vital signs stable. Some tenderness in the epigastric area without guarding rebound on exam. Patient given fluids, Zofran, Pepcid, Maalox and Toradol. She continues to ask for stronger pain medication. Will try Haldol as that has worked in the past when she has presented for similar symptoms. CT abdomen pelvis has been added. Patient signed out to the oncoming physician pending completion of her workup response to treatment -DDX includes but is not limited to: Cyclic vomiting, peptic ulcer disease, GERD, gallbladder disease, appendicitis drug-seeking behavior <Sanjeev Stanton MD - Last Filed: 10/19/24 06:47> Vital Signs Vital Signs: Vital Signs Temperature 98.9 F 10/19/24 05:37 Pulse Rate 77 10/19/24 05:37 Respiratory Rate 16 10/19/24 05:37 Blood Pressure 96/64 L 10/19/24 05:37 Pulse Oximetry 100 10/19/24 05:37 Oxygen Delivery Room Air 10/19/24 05:37 Temperature 98.9 F 10/19/24 05:37 Pulse Rate 64 10/19/24 08:30 Respiratory Rate 16 10/19/24 08:30 Blood Pressure 113/75 10/19/24 08:30 Pulse Oximetry 100 10/19/24 08:30 Oxygen Delivery Room Air 10/19/24 05:37 <Sanjeev Stanton MD - Last Filed: 10/19/24 06:47> Vital Signs Temperature 98.9 F 10/19/24 05:37 Pulse Rate 77 10/19/24 05:37 Respiratory Rate 16 10/19/24 05:37 Blood Pressure 96/64 L 10/19/24 05:37 Pulse Oximetry 100 10/19/24 05:37 Oxygen Delivery Room Air 10/19/24 05:37 Temperature 98.9 F 10/19/24 05:37 Pulse Rate 64 10/19/24 08:30 Respiratory Rate 16 10/19/24 08:30 Blood Pressure 113/75 10/19/24 08:30 Pulse Oximetry 100 10/19/24 08:30 Oxygen Delivery Room Air 10/19/24 05:37 <Colby Patel MD - Last Filed: 10/19/24 08:49> Lab Data Result diagrams: 10/19/24 05:41 10/19/24 06:36 <Sanjeev Stanton MD - Last Filed: 10/19/24 06:47> Labs: Lab Results 10/19/24 10/19/24 10/19/24 Range/Units 05:41 05:45 06:36 WBC 6.3 (4.5-10.0) K/mm3 RBC 4.64 (4.2-5.4) M/mm3 Hgb 14.1 (12.0-15.0) g/dL Hct 42.9 (37.0-47.0) % MCV 92.5 (80-100) fl MCH 30.4 (26-34) pg MCHC 32.9 (32-36) g/dl RDW 11.9 (11.5-14.5) % Plt Count 248 (150-375) k/mm3 MPV 10.0 (7.4-10.4) fl Immature Gran % (Auto) 0.2 (0-0.5) % Neut % (Auto) 57.4 (45.5-73.1) % Lymph % (Auto) 34.4 (18.3-44.2) % Sac % (Auto) 7.7 (2.6-8.5) % Eos % (Auto) 0.0 (0-4.4) % Baso % (Auto) 0.3 (0.2-1.2) % Lymph # (Auto) 2.15 (0.9-3.2) K/mm3 Sac # (Auto) 0.5 (0.1-0.6) K/mm3 Eos # (Auto) 0.0 (0-0.3) K/mm3 Baso # (Auto) 0.0 (0.0-0.1) K/mm3 Abs Immat Gran (auto) 0.01 (0.00-0.031) K/mm3 Absolute Neuts (auto) 3.6 (1.3-6.7) K/mm3 Absolute Nucleated RBC 0.000 (0.0-0.012) K/mm3 Nucleated RBC % 0.0 (0.0-0.2) % Sodium 135 L (137-145) mmol/L Potassium 3.6 (3.4-5.0) mmol/L Chloride 104 (98-107) mmol/L Carbon Dioxide 18 L (22-30) mmol/L Anion Gap 13 H (4-12) mmol/L BUN 9 (7-17) mg/dL Creatinine 0.84 (0.7-1.0) mg/dL Estim Creat Clear Calc 92 ml/min Estimated GFR > 60 (59 - ) Glucose 192 H (65-110) mg/dL Calcium 9.8 (8.4-10.2) mg/dL Total Bilirubin 0.8 (0.2-1.3) mg/dL AST 38 H (14-36) U/L ALT 21 (6-35) U/L Alkaline Phosphatase 46 (38-126) U/L Total Protein 7.9 (6.3-8.2) g/dL Albumin 4.7 (3.5-5.1) g/dL Lipase 112 (23-300) U/L Urine Color Yellow (Yellow) Urine Appearance Clear (Clear) Urine pH 5.5 (5.0-9.0) Ur Specific [place] 1.009 (1.001-1.035) Urine Protein Negative (Negative) mg/dL Urine Glucose (UA) Negative (Negative) mg/dL Urine Ketones 1+ H (Negative) mg/dL Ur Blood (Man) Negative (Negative) Urine Nitrate Negative (Negative) Urine Bilirubin Negative (Negative) Urine Urobilinogen 0.2 (<2.0) mg/dL Leukocyte Esterase Rfl Negative (Negative) SOILA/UL POC Urine HCG, Qual Negative (Negative) Urine Opiates Screen Negative (Negative) Urine Methadone Screen Negative (Negative) Ur Barbiturates Screen Negative (Negative) Ur Phencyclidine Scrn Negative (Negative) Ur Amphetamine Screen Negative (Negative) U Benzodiazepines Scrn Negative (Negative) Urine Cocaine Screen Negative (Negative) U Cannabinoids Screen Positive A (Negative) <Sanjeev Stanton MD - Last Filed: 10/19/24 06:47> Lab Results 10/19/24 10/19/24 10/19/24 Range/Units 05:41 05:45 06:36 WBC 6.3 (4.5-10.0) K/mm3 RBC 4.64 (4.2-5.4) M/mm3 Hgb 14.1 (12.0-15.0) g/dL Hct 42.9 (37.0-47.0) % MCV 92.5 (80-100) fl MCH 30.4 (26-34) pg MCHC 32.9 (32-36) g/dl RDW 11.9 (11.5-14.5) % Plt Count 248 (150-375) k/mm3 MPV 10.0 (7.4-10.4) fl Immature Gran % (Auto) 0.2 (0-0.5) % Neut % (Auto) 57.4 (45.5-73.1) % Lymph % (Auto) 34.4 (18.3-44.2) % Sac % (Auto) 7.7 (2.6-8.5) % Eos % (Auto) 0.0 (0-4.4) % Baso % (Auto) 0.3 (0.2-1.2) % Lymph # (Auto) 2.15 (0.9-3.2) K/mm3 Sac # (Auto) 0.5 (0.1-0.6) K/mm3 Eos # (Auto) 0.0 (0-0.3) K/mm3 Baso # (Auto) 0.0 (0.0-0.1) K/mm3 Abs Immat Gran (auto) 0.01 (0.00-0.031) K/mm3 Absolute Neuts (auto) 3.6 (1.3-6.7) K/mm3 Absolute Nucleated RBC 0.000 (0.0-0.012) K/mm3 Nucleated RBC % 0.0 (0.0-0.2) % Sodium 135 L (137-145) mmol/L Potassium 3.6 (3.4-5.0) mmol/L Chloride 104 (98-107) mmol/L Carbon Dioxide 18 L (22-30) mmol/L Anion Gap 13 H (4-12) mmol/L BUN 9 (7-17) mg/dL Creatinine 0.84 (0.7-1.0) mg/dL Estim Creat Clear Calc 92 ml/min Estimated GFR > 60 (59 - ) Glucose 192 H (65-110) mg/dL Calcium 9.8 (8.4-10.2) mg/dL Total Bilirubin 0.8 (0.2-1.3) mg/dL AST 38 H (14-36) U/L ALT 21 (6-35) U/L Alkaline Phosphatase 46 (38-126) U/L Total Protein 7.9 (6.3-8.2) g/dL Albumin 4.7 (3.5-5.1) g/dL Lipase 112 (23-300) U/L Urine Color Yellow (Yellow) Urine Appearance Clear (Clear) Urine pH 5.5 (5.0-9.0) Ur Specific [place] 1.009 (1.001-1.035) Urine Protein Negative (Negative) mg/dL Urine Glucose (UA) Negative (Negative) mg/dL Urine Ketones 1+ H (Negative) mg/dL Ur Blood (Man) Negative (Negative) Urine Nitrate Negative (Negative) Urine Bilirubin Negative (Negative) Urine Urobilinogen 0.2 (<2.0) mg/dL Leukocyte Esterase Rfl Negative (Negative) SOILA/UL POC Urine HCG, Qual Negative (Negative) Urine Opiates Screen Negative (Negative) Urine Methadone Screen Negative (Negative) Ur Barbiturates Screen Negative (Negative) Ur Phencyclidine Scrn Negative (Negative) Ur Amphetamine Screen Negative (Negative) U Benzodiazepines Scrn Negative (Negative) Urine Cocaine Screen Negative (Negative) U Cannabinoids Screen Positive A (Negative) <Colby Patel MD - Last Filed: 10/19/24 08:49> Discharge Plan Discharge Clinical Impression: GERD without esophagitis Nausea & vomiting Qualifiers: Vomiting type: unspecified Qualified Code(s): R11.2 - Nausea with vomiting, unspecified <Sanjeev Stanton MD - Last Filed: 10/19/24 06:47> Patient Disposition: Home <Sanjeev Stanton MD - Last Filed: 10/19/24 06:47> Condition: Stable <Sanjeev Stanton MD - Last Filed: 10/19/24 06:47> Instructions: Antibiotic Form, Acute Nausea and Vomiting (ED) <Sanjeev Stanton MD - Last Filed: 10/19/24 06:47> Additional Instructions: You were seen in the emergency department. Your labs an imaging of the belly were not concerning for infection, bowel injury or obstruction. I recommend nausea medications, acid blocking medications and following up with your primary care doctor. I recommend avoiding marijuana as this can exacerbate your symptoms. If you develop abdominal pain with fevers, persistent vomiting, bleeding, or if you have other emergent concerns for life, limb, or eyesight, return to the emergency department. <Sanjeev Stanton MD - Last Filed: 10/19/24 06:47> Patient Language: Montserratian <Sanjeev Stanton MD - Last Filed: 10/19/24 06:47> Prescriptions: New prochlorperazine maleate [Compazine] 10 mg tablet 10 mg PO Q8H PRN (Reason: nausea and vomiting) Qty: 12 0RF omeprazole 40 mg capsule,delayed release(DR/EC) 40 mg PO BID Qty: 60 0RF No Action dicyclomine 20 mg tablet 20 mg PO QID Qty: 14 0RF ondansetron 4 mg tablet,disintegrating 4 mg PO Q6H PRN (Reason: nausea and vomiting) Qty: 10 0RF ondansetron 4 mg tablet,disintegrating 4 mg PO Q8H PRN (Reason: nausea and vomiting) Qty: 10 0RF <Sanjeev Stanton MD - Last Filed: 10/19/24 06:47> Follow-up/Referrals: PHYSICIAN,RETREAD BUILDER [Primary Care Provider] - Pavel Llamas MD [Physician] - 2 Weeks <Sanjeev Stanton MD - Last Filed: 10/19/24 06:47> Time of Disposition: 08:48 <Sanjeev Stanton MD - Last Filed: 10/19/24 06:47> 08:48 <Colby Patel MD - Last Filed: 10/19/24 08:49>
[2024-10-19 05:47] LABS: BEDSIDEPREGUCG Negative (Negative)
--- OUTSIDE RECORDS SUMMARY | 2024-10-19 05:47 | XMS_ITS | Encounter Summary ---
Author Organization [facility] Address [address] [place] [address] Phone Care Team Providers Care Street Sweeper Operator Name Role Phone Brandi Rashid MD Unavailable [phone] Deya Patel PAC Unavailable [phone] Zaira Boudreaux APRN, EMPLOYEE HEALTH RN Primary Care [facility] er Reason for Visit * Reason Comments Medication Refill Encounter Details Date Type Department Care Team (Late st Contact Info) Description 05/04/2024 Refill [facility] - Primary [facility] [address] [place] [address] Zaira Boudreaux APRN, EMPLOYEE HEALTH RN [address] [place] [address] Medication Refill Social History Tobacco [...] Sex Assigned at Female 05/22/2024 1:19 PM WAX PUMPER Legal Sex Female 3:49 AM WAX PUMPER Gender Identity Female 05/22/2024 1:19 PM WAX PUMPER Sexual Orientation Straight 05/22/2024 1: 19 PM WAX PUMPER documented as of this encounter Miscellaneous Notes * Telephone Encounter - Nikkie Lutz LPN - 05/04/2024 1:16 PM WAX PUMPER Medication failed the protocol, provider to review [...] Dept 01/07/24 Office Visit Zaira Boudreaux APRN, EMPLOYEE HEALTH RN [facility] 11/29/23 Office Visit Zaira Boudreaux APRN, MAEVE [facility] 08/04/23 Office Visit Zaira Boudreaux APRN, MAEVE [facility] 06/09/23 Office Visit Zaira Boudreaux APRN, EMPLOYEE HEALTH RN [facility] Showing recent visits within past 365 days and meeting all other requirements Future Appointments Date Type Provider Dept 05/05/24 Appointment Zaira Boudreaux APRN, EMPLOYEE HEALTH RN [facility] Showing future appointments within next 90 days and meeting all other requirements Passed - No active on record PUMPER documented in this encounter Plan of Treatment Upcoming Encounters Date Type Department Care Team (Late st Contact Info) Description 11/03/2024 8:00 AM CDT Telemedicine [facility] - Internal Medicine [facility] [place] [address] [place] [address] Zaira Boudreaux, VANCE, EMPLOYEE HEALTH RN [address] [place] [address] documented as of this encounter Visit Diagnoses Diagnosis PUD (peptic ulcer disease) Peptic ulcer, unspecified site, unspecified as acute or chronic, without mention of hemorrhage, perforation, or obstruction documented in this encounter Additional Health Concerns Assessment Noted Time PHQ-9 Depression Total Score: 0 05/16/19 19 6:00 AM WAX PUMPER documented as of this encounter Care Teams Street Sweeper Operator Relationship Specialty Start Date End Date Zaira Boudreaux APRN, EMPLOYEE HEALTH RN PCP - General Advanced Practice Nurse 01/01/22 Brandi Rashid MD Consulting Physician Family Medicine 08/09/19 Deya Patel PAC Physician Aircraft Mechanic Physician Aircraft Mechanic 08/09/19 documented as of this encounter
--- OUTSIDE RECORDS SUMMARY | 2024-10-19 05:47 | XMS_ITS | Clinical Summary ---
Author Organization [facility] Address [address] [place] [address] Care Team Providers Care Commercial Fisher Name Role Phone Pcp, None Primary Care [...] Comments Blood Pressure 114/61 05/01/2020 2:15 PM MASONRY INSTALLER Pulse 80 05/01/2020 2:15 PM MASONRY INSTALLER Temperature 37 C (98.6 F) 05/01/2020 10:28 AM MASONRY INSTALLER Respiratory Rate 18 05/01/2020 2:15 PM MASONRY INSTALLER Oxygen Saturation 96% 05/01/2020 2:15 PM MASONRY INSTALLER Inhaled Oxygen Concentration - - Weight 77.1 kg (170 lb) 05/01/2020 10:28 AM MASONRY INSTALLER Height 180.3 cm (5' 11) 05/01/2020 10:28 AM MASONRY INSTALLER Body Mass Index 23.71 05/01/2020 10:28 AM MASONRY INSTALLER Plan of Treatment Health Maintenance Due Date Last Done Comments Annual Physical 1993 Insurance [facility] PLANS [facility] Care Teams Commercial Fisher Relationship Specialty Start Date End Date Pcp, DUKE Borrero [id number] PCP - General 05/01/20
--- OUTSIDE RECORDS SUMMARY | 2024-10-19 05:47 | XMS_ITS | Clinical Summary ---
Author Organization [facility] Address [address] [place] [address] Phone Care Team Providers Care Welding Machine Operator Name Role Phone Brandi Rashid MD Unavailable [phone] Deya Patel Unavailable [phone] Zaira Boudreaux DRILLING PLANT OPERATOR, LITIGATION ASSOCIATE Primary Care Provid er Allergies No known [...] CDT - 09/24/2024 3:59 PM CDT [facility] [address] [place] [address] Hua Richard DO Periumbilical abdominal pain Discharge Disposition: Discharged to home or Selfcare 09/24/2024 Travel 08/22/2024 Telephone [facility] [address] [place] [address] Zaira Boudreaux, DRILLING PLANT OPERATOR, LITIGATION ASSOCIATE Prior Authorization (Acyclovir 5% cream denied needs changed ) 08/22/2024 [facility] [place] [address] [place] [phone] Zaira Boudreaux, VANCE, MAEVE VAGINITIS SCREEN, MOLECULAR, CHLAMYDIA & GC DNA PROBE > 12 08/21/2024 1:20 PM CDT Office Visit [facility] [place] [address] [place] [phone] Zaira Boudreaux, VANCE, LITIGATION ASSOCIATE Acute vaginitis (Primary Dx); Herpes simplex; Hyperthyroidism; Vaginal discharge Discharge Disposition: Discharged to home or Selfcare 08/21/2024 Travel 08/15/2024 MyChart RX Renewal [facility] [place] [address] [place] [phone] Zaira Boudreaux, VANCE, LITIGATION ASSOCIATE Medication Renewal Reviewed 08/15/[address] [facility] [place] [address] [place] [address] Zaira Boudreaux, VANCE, LITIGATION ASSOCIATE 08/11/[address] [facility] [place] [address] [place] [address] Zaira Boudreaux, VANCE, LITIGATION ASSOCIATE Medication Management from Last 3 Months Immunizations [...] declined 08/21/2024 How often do you attend mu-ism or latter-day serv ices? Patient declined 08/21/2024 Do you belong to any clubs o r organizations such as mu-ism groups, unions, fraternal or athletic groups, or [...] Total Score - Questions 1-9 0 09/07 [facility] [place] [facility] Occupat ional Health - Occupational Stress [...] any time in the past 12 m [facility], were you homeless or living in a usp (including now)? Patient declined 08/21/2024 Education Answer Date Recorded What is the highest level of school you have completed or the highest degree you have received? GED or equivalent 04/2020 Sexually Active Control Partners Comments Yes Male Comments No Sex and Gender Information Value Date Recorded Sex Assigned at Female 05/22/2024 1:19 PM BEAM WARPER Legal Sex Female 3:49 AM BEAM WARPER Gender Identity Female 05/22/2024 1:19 PM BEAM WARPER Sexual Orientation Straight 05/22/2024 1: 19 PM BEAM WARPER Last Filed Vital Signs Vital Sign Reading [...] [facility] [place] [address] [place] [address] Zaira Boudreaux M, DRILLING PLANT OPERATOR, LITIGATION ASSOCIATE [address] [place] [address] Health Maintenance Due Date Last [...] 07/26/2024 1 2:00 AM CDT PATHOLOGY CYTOLOGY DOMESTIC MAID Routine 11:34 AM CDT Cervical cancer screening HEPATITIS C ANTIBODY Routine 12/29/2023 12:43 PM CDT Urinary pain Possible exposure to STI from Last 3 Months or Most Recently Relevant to Health Maintenance Results * (ABNORMAL) Urinalysis w/ Reflex (09/24/2024 2:42 PM CDT) SPECIFIC GRAVITY >=1.030 1.003 - 1.030 09/24/2024 2:57 PM CDT [facility] URINE PH 6.0 5.0 - 9.0 09/24/2024 2:57 PM CDT [facility] WBC ESTERASE Negative Negative 09/24/2024 2:57 PM CDT [facility] NITRITE Negative Negative 09/24/2024 2:57 PM CDT [facility] PROTEIN, RANDOM URINE 1+(A) Negative 09/24/2024 2:57 PM CDT [facility] URINE GLUCOSE, QUAL 2+(A) Negative 09/24/2024 2:57 PM CDT [facility] URINE KETONES 2+(A) Negative 09/24/2024 2:57 PM CDT [facility] UROBILINOGEN 0.2 0.2 , 1.0 , Normal mg/dL 09/24/2024 2:57 PM CDT [facility] URINE BLOOD 3+(A) Negative kyleigh/ul 09/24/2024 2:57 PM CDT [facility] URINALYSIS COLOR Yellow 09/24/2024 2:57 PM CDT [facility] URINALYSIS CLARITY Slightly Cloudy 09/24/2024 2:57 PM CDT [facility] WBC (Urine) 0-5 Negative, 0-5 /hpf 09/24/2024 2:57 PM CDT [facility] URINE RBC'S Packed(A) Negative, 0-2 /hpf 09/24/2024 2:57 PM CDT [facility] EPITHELIAL CELLS Occasional /lpf 09/24/2024 2:57 PM CDT [facility] BACTERIA, URINE Negative Negative /hpf 09/24/2024 2:57 PM CDT [facility] URINE MUCOUS Many 09/24/2024 2:57 PM CDT [facility] Urine URINE SPECIMEN / Unknown Non-Phlebotomy Collection / Unknown 09/24/2024 2:42 PM CDT 09/24/2024 2:42 PM CDT us Hua Amir DO URINE ORDERABLES Final Result [facility] [address] [place] [address], [place] [phone] * Ur Test Qual (09/24/2024 2:42 PM CDT) PREG TEST,MONOCLONA L Negative 09/24/2024 2:58 PM CDT [facility] Urine Non-Phlebotomy Collection / Unknown 09/24/2024 2:42 PM CDT 09/24/2024 2:42 PM CDT us Hua Richard DO URINE ORDERABLES Final Result Performing Organization Address [facility] Co de Phone Number [address] [address], [place] [phone] * (ABNORMAL) CBC with Auto Differential (09/24/2024 11:15 AM CDT) Pathologist [facility] WBC 10.55 4.00 - 12.00 10(3)/mcL 09/24/2024 11:22 AM CDT [facility] RBC 4.35 3.80 - 5.30 10(6)/mcL 09/24/2024 11:22 AM CDT [facility] HEMOGLOBIN (HGB) 13.4 12.0 - 15.8 g/dL 09/24/2024 11:22 AM CDT [facility] HEMATOCRIT (HCT) 40.1 36.0 - 47.0 % 09/24/2024 11:22 AM CDT [facility] MCV 92.2 82.0 - 96.0 fL 09/24/2024 11:22 AM CDT [facility] MCH 30.8 26.0 - 34.0 pg 09/24/2024 11:22 AM CDT [facility] MCHC 33.4 31.0 - 36.0 g/dL 09/24/2024 11:22 AM CDT [facility] PLATELET COUNT 231 140 - 440 10(3)/mcL 09/24/2024 11:22 AM CDT [facility] RDW 12.1 11.8 - 15.5 % 09/24/2024 11:22 AM T [facility] MPV 9.0(L) 9.7 - 12.4 fL 09/24/2024 11:22 AM [facility] NEUTROPHILS 89.0(H) 47.0 - 73.0 % 09/24/2024 11:22 AM T [facility] LYMPHOCYTES 6.6(L) 18.0 - 42.0 % 09/24/2024 11:22 AM T [facility] MONOCYTES 4.2 4.0 - 12.0 % 09/24/2024 11:22 AM [facility] EOSINOPHILS 0.0 0.0 - 5.0 % 09/24/2024 11:22 AM [facility] BASOPHILS 0.2 0.0 - 1.0 % 09/24/2024 11:22 AM [facility] ABSOLUTE NEUTROPHILS 9.39(H) 1.60 - 7.70 10(3)/[facility] 09/24/2024 11:22 AM [facility] ABSOLUTE LYMPHOCYTES 0.70(L) 1.30 - 3.20 10(3)/[facility] 09/24/2024 11:22 AM [facility] ABSOLUTE MONOCYTES 0.44 0.20 - 1.00 10(3)/[facility] 09/24/2024 11:22 AM [facility] ABSOLUTE EOSINOPHIL 0.00 0.00 - 0.40 10(3)/[facility] 09/24/2024 11:22 AM [facility] ABSOLUTE BASOPHILS 0.02 0.00 - 0.10 10(3)/[facility] 09/24/2024 11:22 AM [facility] NRBC PER 100 WBC 0 09/25/19 11:22 AM [facility] Blood Venous Catheter (IV) / Unknown 09/24/2024 11:15 AM CDT 09/24/2024 11:19 AM CDT Marisabelammanate Amir DO HEMATOLOGY ORDERABLES Final Res ult Performing Organization Address City/[facility]/ZIP Co de Phone Number [address] [address], [place] [phone] * Lipase (09/24/2024 11:15 AM CDT) LIPASE 28 8 - 78 U/L 09/24/2024 11:43 AM CDT [facility] Blood Venous Catheter (IV) / Unknown 09/24/2024 11:15 AM CDT 09/24/2024 11:19 AM CDT Hua Richard DO CHEMISTRY ORDERABLES Final Resu lt Performing Organization Address [facility] Co de Phone Number [address] [address], [place] [phone] * (ABNORMAL) CMP (09/24/2024 11:15 AM CDT) SODIUM 138 136 - 145 mmol/L 09/24/2024 11:43 AM CDT [facility] POTASSIUM 3.6 3.5 - 5.1 mmol/L 09/24/2024 11:43 AM CDT [facility] CHLORIDE 105 98 - 107 mmol/L 09/24/2024 11:43 AM CDT [facility] CO2, VENOUS 20(L) 22 - 30 mmol/L 09/24/2024 11:43 AM CDT [facility] ANION GAP 13.0 <18.0 mmol/L 09/24/2024 11:43 AM CDT [facility] GLUCOSE 212(H) 70 - 99 mg/dL 09/24/2024 11:43 AM CDT [facility] BUN 9 5 - 18 mg/dL 09/24/2024 11:43 AM CDT [facility] CREATININE, BLOOD 0.97 0.60 - 1.00 mg/dL 09/24/2024 11:43 AM [facility] BUN/CREATININE RATIO 9(L) 12 - 20 ratio 09/24/2024 11:43 AM [facility] TOTAL PROTEIN 7.7 6.0 - 8.0 g/dL 09/24/2024 11:43 AM [facility] ALBUMIN 4.5 3.5 - 5.0 g/dL 09/24/2024 11:43 AM [facility] A/G RATIO 1.4 1.0 - 2.2 09/24/2024 11:43 AM [facility] CALCIUM 9.4 8.7 - 10.5 mg/dL 09/24/2024 11:43 AM [facility] T BILI 0.7 0.2 - 1.2 mg/dL 09/24/2024 11:43 AM [facility] SGOT (AST) 28 <43 U/L 09/24/2024 11:43 AM [facility] SGPT (ALT) 17 <56 U/L 09/24/2024 11:43 AM [facility] ALKALINE PHOSPHATASE 39(L) 40 - 150 U/L 09/24/2024 11:43 AM [facility] GFR, ESTIMATED >60 >=60 09/24/2024 11:43 AM [facility] Comment: Creatinine Clearance is the preferred criteria for selecting drug dose adjustments in renally impaired patients. The GFR is provided as additional pertinent clinical information. GFR is reported in mL/min/1.73 sq m. Calculation based on the Chronic Kidney Disease Epidemiology Collaboration (CKD- EPI) equation refit without adjustment for race. GFR, EST. >60 >=60 025 11:43 AM [facility] GFR, EST. NONAFRICAN >60 >=60 09/24/2024 11:43 AM [facility] Blood Venous Catheter (IV) / Unknown 09/24/2024 11:15 AM CDT 09/24/2024 11:19 AM CDT us Hua Richard DO CHEMISTRY ORDERABLES Final Resu lt [facility] [address] [place] [address], * CHLAMYDIA & GC DNA PROBE > 12 (08/21/2024 1:49 PM CDT) CHLAMYDIA DNA NEGATIVE NEGATIVE 08/22/2024 9:18 AM CDT [facility] Comment: Presumed negative for C. trachomatis. A negative result does not preclude C. trachomatis infection because results are dependent on adequate specimen collection, absence of inhibitors, and sufficient DNA to be detected. This test was performed using PRICE 5800 Real Time PCR. GC DNA NEGATIVE NEGATIVE 08/22/2024 9:18 AM CDT [facility] Comment: Presumed negative for N. gonorrhoeae. A negative result does not preclude N. gonorrhoeae infection because results are dependent on adequate specimen collection, absence of inhibitors, and sufficient DNA to be detected. This test was performed using PRICE 5800 Real Time PCR. Other (Self-collect vaginal swab) Non-Phlebotomy Collection / Unknown 08/21/2024 1:49 PM CDT 08/21/2024 1:49 PM CDT Zaira Boudreaux APRN, LITIGATION ASSOCIATE MICROBIOLOGY - GENER AL ORDERABLES Final Result Performing Organization Address City/[facility]/ZIP Co de Phone Number [facility] [address] [place] [address], * (ABNORMAL) VAGINITIS SCREEN, MOLECULAR (08/21/2024 1:49 PM CDT) TRICHOMONAS NOT DETECTED NOT DETECTED 08/22/2024 1:19 AM CDT [facility] BACTERIAL VAGINOSIS DETECTED(A) NOT DETECTED 08/22/2024 1:19 AM CDT [facility] SCARLETT DETECTED(A) NOT DETECTED 08/22/2024 1:19 AM CDT [facility] Comment: Scarlett group DNA Detected with the following possible Scarlett species; Scarlett albicans and/or Scarlett tropicalis and/or Scarlett parapsilosis and/or Scarlett dubliniensis SCARLETT GLABRATA NOT DETECTED NOT DETECTED 08/22/2024 1:19 AM CDT [facility] SCARLETT KRUSEI NOT DETECTED NOT DETECTED 08/22/2024 1:19 AM CDT [facility] Other VAGINAL STRUCTURE / Unknown Non-Phlebotomy Collection / Unknown 08/21/2024 1:49 PM CDT 08/21/2024 1:49 PM CDT us Zaira Boudreaux APRN, LITIGATION ASSOCIATE MICROBIOLOGY - GENER AL ORDERABLES Final Result Performing Organization Address City/[facility]/ZIP Co de Phone Number [facility] [address] [place] [address], * LAB - MISCELLANEOUS (07/26/2024 12:00 AM CDT) 07/26/2024 Provider Scan CHEMISTRY ORDERABLES Final Resul t SCAN * PATHOLOGY CYTOLOGY DOMESTIC MAID (01/07/2024 11:34 AM CDT) SPECIMEN ADEQUACY Satisfactory for evaluation. Endocervical/transf ormation zone component is present. 01/17/2024 4:36 PM CDT [facility] DESCRIPTIVE DIAGNOSIS NEGATIVE FOR INTRAEPITHELIAL LESIONS OR MALIGNANCY. 01/17/2024 4:36 PM CDT [facility] at 1635 CDT Automated Examination Analysis of this sample has been assisted by an automated imaging and review system ([employer] System, [employer], [place], [place]). This case is further evaluated and finalized by a ultrasound technician and/or pathologist. 01/17/2024 4:36 PM CDT [facility] Disclaimer The PAP smear is a [...] unless clinically indicated. 01/17/2024 4:36 PM CDT [facility] Case Report Gynecologic Cytology Report Case: [id number] Authorizing Provider: Zaira Boudreaux APRN, Collected: 01/07/2024 11:34 AM MAEVE Ordering Location: [facility] Medical Received: 01/07/2024 11:34 AM [facility] First Screen: Emilia [place] Specimen: TP Screen, Cervix 01/17/2024 4:36 PM CDT [facility] Other CERVIX UTERI STRUCTURE / Unknown Non-Phlebotomy Collection / Unknown 01/07/2024 11:34 AM CDT 01/07/2024 11:34 AM CDT us Zaira Boudreaux APRN, MAEVE PATHOLOGY/CYTOLOGY O RDERABLES Final Result [facility] [address] [place] [address], * HEPATITIS C ANTIBODY (12/29/2023 12:43 PM CDT) hepatitis C antibody 0.11 <1 S/CO 12/29/2023 10:08 PM CDT [facility] Comment: Signal/Cutoff ratio < 0.79 is Nondetected Signal/Cutoff ratio 0.80-0.99 is Grayzone Signal/Cutoff ratio > 0.99 is Detected Supplemental assays are recommended if signal/cutoff ratio is >/=1.00. Signal/cutoff ratio result >/= 5.00 is 97% predictive of positivity for recombinant immunoblot assay (RIBA) and will be reported to the [place] Department of Public Health as required. Blood Venipuncture / Unknown 12/29/2023 12:43 PM CDT 12/29/2023 12:43 PM CDT us Kiki Mcnally APRN, MAEVE CHEMISTRY ORDERA BLES Final Result [facility] [address] [place] [address], [place] from Last 3 Months or Most Recently Relevant to Health Maintenance Insurance MEDICAID [employer] [facility] Advance Directives * Full Code (Latest Code Status on File) Date Activated Date Inactivated Comments 11/22/2014 9:01 AM 05/02/2022 1:29 AM Care Teams Welding Machine Operator Relationship Specialty Start Date End Date Zaira Boudreaux APRN, LITIGATION ASSOCIATE PCP - General Advanced Practice Nurse 01/01/22 Brandi Rashid MD Consulting Physician Family Medicine 08/09/19 Deya Patel PAC Physician Swimming Teacher Physician Swimming Teacher 08/09/19
--- OUTSIDE RECORDS SUMMARY | 2024-10-19 05:47 | XMS_ITS | Encounter Summary ---
Author Organization [facility] Address [address] [place] [address] Phone Care Team Providers Care Bridge Operator Name Role Phone Brandi Rashid MD Unavailable [phone] Deya Patel PAC Unavailable [phone] Zaira Boudreaux APRN, DETECTIVE [place] Primary Care Provid er Encounter Details Date Type Department Care Team (Late st Contact Info) Description 08/22/2024 Results Follow-Up [facility] - [facility] [place] [address] [place] [address] Zaira Boudreaux APRN, DETECTIVE [place] [address] [place] [address] VAGINITIS SCREEN, MOLECULAR, CHLAMYDIA & GC DNA PROBE > 12 Social History Tobacco Use Types Packs/Day Years Used Date Smoking Tobacco: Former Cigarettes 0.3 8 Q uit: 03/04/2019 Smokeless Tobacco: Never Alcohol Use Standard Drinks/Week Comments Not Currently 0 (1 standard drink = 0.6 oz pur e alcohol) occasional C Utilities Answer Date Recorded In the past 12 months has [employer], gas, oil, or water i2we threatened to shut off services in your home? Patient declined 08/21/2024 Social Connection and Isolation Panel Answer Date Recorded In a typical week, how many times do you talk on the phone with family, friends, or neighbors? Patient declined 08/21/2024 How often do you get togethe r with friends or relatives? Patient declined 08/21/2024 How often do you attend caodaism or islam serv ices? Patient declined 08/21/2024 Do you belong to any clubs o r organizations such as caodaism groups, unions, fraternal or athletic groups, or [...] Total Score - Questions 1-9 0 09/07 [facility] ional Health - Occupational [...] any time in the past [address] [facility], were you homeless or living in a assisted (including now)? Patient declined 08/21/2024 Education Answer Date Recorded What is the highest level of school you have completed or the highest degree you have received? GED or equivalent 04/2020 Sexually Active Control Partners Comments Yes Male Comments No Sex and Gender Information Value Date Recorded Sex Assigned at Female 05/22/2024 1:19 PM OIL SPECULATOR Legal Sex Female 3:49 AM OIL SPECULATOR Gender Identity Female 05/22/2024 1:19 PM OIL SPECULATOR Sexual Orientation Straight 05/22/2024 1: 19 PM OIL SPECULATOR documented as of this encounter Plan of Treatment Upcoming Encounters Date Type Department Care Team (Late st Contact Info) Description 11/03/2024 8:00 AM CDT Telemedicine [facility] [address] [place] [phone] Zaira Boudreaux, TECHNICAL ENGINEER, DETECTIVE [place] [address] [place] [phone] documented as of this encounter Visit Diagnoses Diagnosis Yeast infection- Primary Other and unspecified mycoses documented in this encounter Additional Health Concerns Assessment Noted Time PHQ-9 Depression Total Score: 0 05/16/19 19 6:00 AM OIL SPECULATOR documented as of this encounter Care Teams Bridge Operator Relationship Specialty Start Date End Date Zaira Boudreaux, TECHNICAL ENGINEER, DETECTIVE [place] PCP - General Advanced Practice Nurse 01/01/22 Brandi Rashid MD Consulting Physician Family Medicine 08/09/19 Deya Patel PAC Physician Home Health Registered Nurse Physician Home Health Registered Nurse 08/09/19 documented as of this encounter
--- OUTSIDE RECORDS SUMMARY | 2024-10-19 05:47 | XMS_ITS | Referral Summary ---
Author Organization [facility] Address [address] [place] [address] Care Team Providers Care Client Operations Manager Name Role Phone Pcp, None Primary [...] Comments Blood Pressure 114/61 05/01/2020 2:15 PM MANAGER OB Pulse 80 05/01/2020 2:15 PM MANAGER OB Temperature 37 C (98.6 F) 05/01/2020 10:28 AM MANAGER OB Respiratory Rate 18 05/01/2020 2:15 PM MANAGER OB Oxygen Saturation 96% 05/01/2020 2:15 PM MANAGER OB Inhaled Oxygen Concentration - - Weight 77.1 kg (170 lb) 05/01/2020 10:28 AM MANAGER OB Height 180.3 cm (5' 11) 05/01/2020 10:28 AM MANAGER OB Body Mass Index 23.71 05/01/2020 10:28 AM MANAGER OB Plan of Treatment Not on file Insurance [facility] [place] [address] [place] [address] [facility] Care Teams Client Operations Manager Relationship Specialty Start Date End Date Pcp, DUKE Borrero [id number] PCP - General 05/01/20
--- OUTSIDE RECORDS SUMMARY | 2024-10-19 05:47 | XMS_ITS ---
Author Organization [facility] Address [address] [place] [address] Phone Care Team Providers Care Ecological Technical Officer Name Role Phone Brandi Rashid MD Unavailable [phone] Deya Patel Unavailable [phone] Zaira Boudreaux APRN, BITE BLOCK MAKER Primary Care Provid er [facility] Status:Enrolled (Active) Start date:06/07/2024 Enrollment date:06/07/2024 Related social drivers of health:Social Connections, Alcohol Use, Tobacco Use, Financial Resource Strain, Stress, Physical Activity,Food Insecurity, Transportation Needs, Housing Stability, Utilities Continued Care and Services Coordination
[2024-10-19] MEDS: KETOROLAC 15 MG/ML VIAL (*BKC) IV PUSH (05:48)
[2024-10-19] MEDS: ONDANSETRON INJ 4 MG/2 ML VIAL IV PUSH (05:48)
[2024-10-19] MEDS: MAG HYDROX/AL HYDROX/SIMETH 30 ML UDC PO (05:48)
[2024-10-19] MEDS: FAMOTIDINE 20 MG/2 ML VIAL IV PUSH (05:48)
[2024-10-19 05:50] LABS: Add Urine Microscopic? NO; Appearance Urine Clear (Clear); Bilirubin Urine Negative (Negative); Blood Urine Negative (Negative); Color Urine Yellow (Yellow); Glucose Urine UA Negative (Negative); Ketones Urine 1+ mg/dL (Negative); Leukocyte Esterase Ur Negative LEU/UL (Negative); Nitrate Urine Negative (Negative); Protein Urine Negative (Negative); Specific Grav Ur 1.009 (1.001-1.035); Urobilinogen Urine 0.2 mg/dL (<2.0); pH Urine 5.5 (5.0-9.0)
[2024-10-19 05:56] LABS: Basophils Percent Auto 0.3 % (0.2-1.2); Hematocrit 42.9 % (37.0-47.0); Hemoglobin 14.1 g/dL (12.0-15.0); Immature Granulocyte Absolute 0.01 K/mm3 (0.00-0.031); Immature Granulocyte Percent A 0.2 % (0-0.5); Lymphocytes Absolute Auto 2.15 K/mm3 (0.9-3.2); Lymphocytes Percent Auto 34.4 % (18.3-44.2); Mean Corpuscular HGB Conc 32.9 g/dl (32-36); Mean Corpuscular Hemoglobin 30.4 pg (26-34); Mean Corpuscular Volume 92.5 fl (80-100); Monocytes Absolute Auto 0.5 K/mm3 (0.1-0.6); Monocytes Percent Auto 7.7 % (2.6-8.5); Neutrophils Absolute Auto 3.6 K/mm3 (1.3-6.7); Neutrophils Percent Auto 57.4 % (45.5-73.1); Platelet Count Result 248 k/mm3 (150-375); Red Blood Count 4.64 M/mm3 (4.2-5.4); Red Cell Distribution Width 11.9 % (11.5-14.5); White Blood Count 6.3 K/mm3 (4.5-10.0)
--- NOTE | 2024-10-19 06:06 | PC.NURSE ---
lab contacted to add on uds
[2024-10-19 06:30] LABS: Amphetamine Screen Urine Negative (Negative); Barbiturate Screen Urine Negative (Negative); Benzodiazepines Screen Urine Negative (Negative); Cannabinoid Screen Urine Positive (Negative); Cocaine Screen Urine Negative (Negative); Methadone Screen Urine Negative (Negative); Opiate Screen Urine Negative (Negative); Phencyclidine Screen Urine Negative (Negative)
[2024-10-19] MEDS: HALOPERIDOL LACTATE 5 MG/ML VIAL IM (06:43)
[2024-10-19 07:17] LABS: Alanine Aminotransferase 21 U/L (6-35); Albumin Level 4.7 g/dL (3.5-5.1); Alkaline Phosphatase 46 U/L (38-126); Anion Gap 13 mmol/L (4-12); Aspartate Amino Transferase 38 U/L (14-36); Bilirubin,Total 0.8 mg/dL (0.2-1.3); Blood Urea Nitrogen 9 mg/dL (7-17); Calcium 9.8 mg/dL (8.4-10.2); Carbon Dioxide 18 mmol/L (22-30); Chloride 104 mmol/L (98-107); Estimated CRCL calculation 92 ml/min; Estimated Glomerular Filt Rate > 60; Glucose 192 mg/dL (65-110); Lipase 112 U/L (23-300); Potassium 3.6 mmol/L (3.4-5.0); Sodium 135 mmol/L (137-145); Total Protein 7.9 g/dL (6.3-8.2)
[2024-10-19 07:30] VITALS: BP 110/78; PULSE 66; RESP 16; O2SAT 97
[2024-10-19 08:30] VITALS: BP 113/75; PULSE 64; RESP 16; O2SAT 100
[2024-10-19] MEDS: PROCHLORPERAZINE EDISYLATE 10 MG/2 ML VIAL IV PUSH (08:51)
[2024-10-19 09:20] VITALS: BP 106/73; PULSE 66; RESP 16; O2SAT 100
== END 2024-10-19 09:20 | disposition home or self-care (01) ==
PROVIDERS: Emergency Medicine; Emergency Provider Preventive Medicine Aerospace Medicine
DX: K21.9 Gastro-esophageal reflux disease without esophagitis (principal); R11.2 Nausea with vomiting, unspecified
CPT/HCPCS: 36415; 74177; 80053; 80307; 81003; 81025; 83690; 85025; 96372; 96374; 96375; 99284; A9270; J0780; J1630; J1885; J2405; Q9967